=== PATIENT | female | born 1930 | race Caucasian/White ===

== ENCOUNTER 2017-02-01 11:22 | Observation (INO) | payer MEDICARE ==
--- OUTSIDE RECORDS SUMMARY | 2017-02-01 11:52 | XMS REPORT | Continuity of Care Document ---
:1930 Author Organization [facility] ([facility]) Address [address] [place] [address] Phone [phone] Care Team Providers Name Role Phone Rogelio Menchaca Primary Care Provider [phone] Source Comments This disclosure is being made pursuant to the Care Everywhere program, applicable federal and state laws, and may not contain all informaitonavailable regarding this patient.[facility] ([facility]) Active Allergies and Adverse Reactions Allergen Noted Date Severity Reactions Comments Acetaminophen Dizziness Cephalexin Headache Hydrocodone Dizziness Meperidine Nausea & Vomiting Morphine OTHER difficulty in waking up Penicillin G Urticaria (Hives) fainting Sulfadoxine Headache ringing in head Current Medications Prescription Sig. Disp. Refills Start Date End Date Status acetaminophen (TYLENOL take 500 mg by mouth Active EXTRA STRENGTH) 500 mg every 6 hours as tablet needed for Pain. acetaminophen-codeine take 1 Tab by mouth Active 300-30 mg per tablet every 4 hours as needed for Pain. Amitriptyline-Chlordia take 2 Tabs by mouth Active zepoxide 25-10 mg at bedtime. citalopram 40 mg take 40 mg by mouth 2 Active tablet times daily. clindamycin 150 mg take 600 mg by mouth Active capsule once. clonazePAM 1 mg tablet take 1 mg by mouth at Active bedtime. clonidine 0.3 mg take 0.3 mg by mouth Active tablet 2 times daily. diltiazem 240 mg ER take 240 mg by mouth Active capsule daily. docusate 100 mg take 100 mg by mouth Active capsule 2 times daily. ferrous sulfate 325 mg take 325 mg by mouth Active (65 mg Iron) tablet daily. furosemide 40 mg take 20 mg by mouth Active tablet daily. hydrALAZINE 25 mg take 25 mg by mouth 2 Active tablet times daily. levothyroxine 150 mcg take 150 mcg by mouth Active tablet daily. polyethylene glycol take 17 g by mouth at Active 3350 (MIRALAX) 17 gram bedtime as needed. (100 %) packet potassium chloride 10 take 20 mEq by mouth Active mEq tablet daily. propranolol 160 mg cap take 160 mg by mouth Active daily. triamcinolone 0.1 % 1 application by Active paste Dental route 3 times daily. warfarin 1 mg tablet take 1 mg by mouth Active daily. Take 1 mg Sun, tue and thurs. And 1.5 mg rest of the week zolpiDEM (AMBIEN) 10 take 10 mg by mouth Active mg tablet at bedtime as needed for Sleep. cyanocobalamin take 1,000 mcg by Active (VITAMIN B-12) 1,000 mouth daily. mcg tablet ASCORBIC ACID (VITAMIN take by mouth daily. Active C PO) pravastatin take 1 Tab by mouth 90 Tab 11 03/30/2009 Active (PRAVACHOL) 20 mg daily. Indications: tablet Mixed Hyperlipidemia valsartan (DIOVAN) 160 take 1 Tab by mouth 90 Tab 11 04/07/2009 Active mg tablet daily. Indications: Hypertension warfarin (COUMADIN) 1 take 1 mg by mouth Active mg tablet daily. 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 Coronary artery disease 01/29/2009 Overview: Nonobstructive, Bone Tender Dr Hurley in [place] HTN 01/29/2009 Hypothyroidism 01/29/2009 Migraine 01/29/2009 Overview: Dr Candelaria in [place] Osteopenia 01/29/2009 Pulmonary embolism 01/29/2009 Venous stasis 01/29/2009 S/P TKR (total knee replacement) 01/29/2009 Sciatica 01/29/2009 H/O: CVA 01/29/2009 Hyperlipemia 01/29/2009 Overview: Intolerant to increased dose of pravastatin or other statin due to headaches Hoarseness 01/29/2009 Depression 01/29/2009 Malignant melanoma 01/29/2009 Overview: Of eye s/p resection S/P DM (total abdominal hysterectomy) 01/29/2009 Overview: Has ovaries Insomnia 01/29/2009 Hyponatremia 01/29/2009 retirement (current) use of anticoagulants 01/17/2007 Osteoarthrosis, unspecified whether generalized or localized, unspecified 10/2005 site Esophageal reflux 08/23/2004 Overview: Hx of esophageal dilation, Dr Acharya in [place] Resolved Problems Problem Noted Date Resolved Date Hyposmolality and/or hyponatremia 08/24/2008 01/29/2009 Mixed hyperlipidemia 06/19/2007 01/29/2009 Other specified visual disturbances 02/27/2007 01/29/2009 Pain in joint, lower leg 02/27/2007 01/29/2009 Other and unspecified hyperlipidemia 01/17/2007 01/29/2009 Depressive disorder, not elsewhere classified 01/17/2007 01/29/2009 Other constipation 01/17/2007 01/29/2009 Persistent disorder of initiating or maintaining wakefulness 06/21/200601/29 Hypersomnia, unspecified 06/21/2006 01/29/2009 Other malaise and fatigue 06/21/2006 01/29/2009 Urge incontinence 06/21/2006 01/29/2009 Migraine, unspecified, without mention of intractable 05/29/2006 01/29/2009 migraine without mention of status migrainosus Other pulmonary embolism and infarction 05/28/2006 01/29/2009 Urinary tract infection, site not specified 05/17/2006 01/29/2009 Edema 05/17/2006 01/29/2009 Palpitations 05/17/2006 01/29/2009 Unspecified urinary incontinence 04/04/2006 01/29/2009 Atherosclerosis of renal artery 12/21/2005 01/29/2009 Dizziness and giddiness 12/21/2005 01/29/2009 Chest pain, unspecified 12/13/2005 01/29/2009 Abnormality of gait 05/24/2005 01/29/2009 Encounter for long-term (current) use of other medications 02/16/20052008 Muscle weakness (generalized) 02/16/2005 01/29/2009 Flushing 02/16/2005 01/29/2009 Diseases of tricuspid valve 09/29/2004 01/29/2009 Unspecified hypothyroidism 08/23/2004 01/29/2009 Unspecified essential hypertension 08/23/2004 01/29/2009 Other abnormal blood chemistry 03/13/2003 01/29/2009 Immunizations Name Dates Previously Given Next Due Influenza, unspecified 12/13/2005 Pneumococcal Polysaccharide, PPSV23 (Pneumovax 23) 09/07/2005 Social History Tobacco Use Types Packs/Day Years Used Date Never Smoker Alcohol Use Drinks/Week oz/Week Comments No Last Filed Vital Signs Vital Sign Reading Time Taken Blood Pressure 116/63 01/29/2009 2:22 PM CDT Pulse 61 01/29/2009 2:22 PM CDT Temperature 36.1 C (97 F) 01/29/2009 2:22 PM CDT Respiratory Rate 18 01/29/2009 2:22 PM CDT Height 1.638 m (5' 4.5") 01/29/2009 2:22 PM CDT Weight 96.8 kg (213 lb 6.5 oz) 01/29/2009 2:22 PM CDT Body Mass Index 36.08 01/29/2009 2:22 PM CDT Oxygen Saturation - - Plan of Care Health Maintenance Due Date Last Done Comments Hepatitis B Vaccine (1 of 3 - Primary 1930 Series) Tdap Vaccine 1943 Td Vaccine 1950 Zoster Vaccine 1992 Pneumococcal Vaccine (2 of 2 - PCV13) 09/07/2006 09/07/2005 Lipid Disorder Screening 12/13/2010 12/13/2005, 09/07/2005, 02/16/2005 Influenza Vaccine: Seasonal (#1) 04/03/2016 12/13/2005 Colonoscopy 01/29/2019 01/29/2009 (Previously completed) Osteoporosis Screening (DXA Bone Completed 12/12/2004 Density) Results from Last 3 Months Not on file
[2017-02-01] MEDS ORDERED: NORMAL SALINE 500 ML IV ONE (11:56)
--- NOTE | 2017-02-01 11:57 | ERNOTE ---
Medical Problem HPI - General Chief Complaint: General Assessment Time Seen by Provider: 02/01/17 11:45 Source: patient Exam Limitations: no limitations - Immun/Allergies/Home Medications Immunizations: IMMUNIZATION HX Immunizations Up to Date Yes History of Influenza Vaccine Yes Hx Pneumococcal Vaccination Yes Allergies/Adverse Reactions: Allergies cephalexin monohydrate [From Keflex] Allergy (Verified 02/01/17 11:47) meperidine HCl [From Demerol] Allergy (Verified 02/01/17 11:47) morphine Allergy (Verified 02/01/17 11:47) Penicillins Allergy (Verified 02/01/17 11:47) Sulfa (Sulfonamide Antibiotics) Allergy (Verified 02/01/17 11:47) prednisone Adverse Reaction (Intermediate, Verified 02/01/17 11:47) Other Home Medications: HOME MEDICATIONS Acetaminophen with Codeine [Tylenol with Codeine #3 Tablet] 1 each PO Q6H PRN [Last Taken Unknown] Aspirin [Aspirin Chewable] 81 mg PO DAILY 08/21/13 [Last Taken Unknown] Citalopram Hydrobromide [Celexa] 20 mg PO DAILY 08/21/13 [Last Taken Unknown] Docusate Sodium [Colace] 100 mg PO BID PRN 08/21/13 [Last Taken Unknown] Ferrous Sulfate 325 mg PO BID 08/21/13 [Last Taken Unknown] Furosemide [Lasix] 20 mg PO DAILY 08/21/13 [Last Taken Unknown] Levothyroxine Sodium [Synthroid] 0.2 mg PO DAILY 08/21/13 [Last Taken Unknown] Lorazepam [Ativan] 2 mg PO HS 08/21/13 [Last Taken Unknown] Pantoprazole Sodium [Protonix] 40 mg PO DAILY 08/21/13 [Last Taken Unknown] Potassium Chloride [Klor-Con 10] 10 meq PO DAILY 08/21/13 [Last Taken Unknown] Pravastatin Sodium [Pravachol] 20 mg PO HS 08/21/13 [Last Taken Unknown] Propranolol HCl [Propranolol HCl ER] 120 mg PO TID 08/21/13 [Last Taken Unknown] Valsartan [Diovan] 160 mg PO DAILY 08/21/13 [Last Taken Unknown] Amitriptyline HCl [Elavil] 50 mg PO HS 08/22/13 [Last Taken Unknown] Amitriptyline/Chlordiazepoxide [Chlordiazepox-Amitriptyl 10-25] 1 each PO HS [Last Taken Unknown] Cyanocobalamin [Vitamin B-12] 1,000 mcg IM Q28D 08/22/13 [Last Taken Unknown] Zolpidem Tartrate [Ambien Cr] 6.25 mg PO HS 08/22/13 [Last Taken Unknown] hydrALAZINE HCL [Apresoline] 50 mg PO TID 08/22/13 [Last Taken Unknown] Diphenoxylate HCl/Atrop Sulf [Lomotil] 2.5 mg PO TID PRN #30 tablet 02/01/17 [ Last Taken Unknown] Loperamide HCl [Imodium] 2 mg PO BID PRN #30 capsule 02/01/17 [Last Taken Unknown] - History of Present History Narrative: Here for weakness and diarrhea. she feels tired and has a headache and feels weak. Recent UTI two weeks ago. she has had diarrhea for the past two weeks and feels very weak Review of Systems - Review of Systems Constitutional: Present: weakness, fatigue, malaise EYE: Present: no symptoms reported ENT: Present: no symptoms reported Respiratory: Present: no symptoms reported Cardiology: Present: no symptoms reported Gastrointestinal/Abdominal: Present: See HPI, diarrhea, other - very poor appetite Musculoskeletal: Present: no symptoms reported Skin: Present: no symptoms reported Neurological: Present: no symptoms reported Endocrine: Present: no symptoms reported Hematologic/Lymphatic: Present: no symptoms reported Psych: Present: no symptoms reported - Patient's Past Medical History Patient History - Medical: UTI'S Patient History - Cardiac/Respiratory: CHF, TIA Patient History - Cancer: Melanoma Patient History - Surgical Procedures: Hysterectomy, Total Knee Replacement - Social History Living Situations: home Smoking Status: Never smoker - Immunizations Immunizations Up to Date: Yes Hx Pneumococcal Vaccination: Yes History of Influenza Vaccine: Yes Physical Exam - Physical Exam General Appearance: Present: alert, lethargic Ears, Nose, Throat: Present: normal ENT inspection, normal pharynx, dry mucous membranes Neck: Present: normal inspection, nontender Respiratory: Present: no respiratory distress, normal breath sounds, no accessory muscle use, chest nontender, lungs clear Cardiovascular/Chest: Present: regular rate, rhythm, no murmur, normal peripheral pulses Gastrointestinal/Abdominal: Present: normal bowel sounds, nontender, nondistended, soft, no organomegaly Back Exam: Present: normal inspection, normal range of motion Extremity Exam: Present: normal inspection, normal range of motion Neurological Exam: Present: alert, oriented, normal mood/affect, no motor/ sensory deficits Skin Exam: Present: pallor ED Progress - Results and Orders Patient's Lab Results:: I have reviewed the patient's lab results. - Vital Signs Patient's Vital Signs:: I have reviewed the patient's vital signs. Vital Signs: Vital Signs 02/01/17 11:39 Temperature 36.7 C Pulse Rate 69 Respiratory 16 Rate Blood Pressure 119/52 O2 Sat by Pulse 95 Oximetry - Progress/Reassessment Chief Complaint: General Assessment Plan - Plan Plan: I called Dr. Fajardo and discussed the care of this patient with him. Pt is very lethargic and weak however Dr. Fajardo stated that this is patient' s normal state and that she is always in a wheelchair and not warranting admission to hospital. He suggested social sciences research scientist consult for placement to a detention facility where staff could work with patient on strengthening of patient however daughter Lucia, adamantly refused. When orthostatics were done , patient tilted and Dr. Fajardo was consulted again and in light of this patient's orthostatic instability pt will now be admitted to observation on the med/surg floor in this hospital Departure - Departure Clinical Impression: Weakness, Orthostatic dizziness Diarrhea Qualifiers: Diarrhea type: unspecified type Qualified Code(s): R19.7 - Diarrhea, unspecified Clinical Impression: (Ruled Out): Diarrhea associated with pseudomembranous colitis Disposition: [facility] Condition: Serious Instructions: Diarrhea, Child Referrals: Rogelio Fajardo MD [Primary Care Provider] - Prescriptions: Diphenoxylate HCl/Atrop Sulf [Lomotil] 2.5 mg PO TID PRN #30 tablet PRN Reason: Abdominal Distention Loperamide HCl [Imodium] 2 mg PO BID PRN #30 capsule PRN Reason: Abdominal Distention
[2017-02-01 12:37] LABS: Hematocrit 36.9 % (37.0-47.0); Hemoglobin 12.4 gm/dL (12.5-16.0); Mean Cell Volume 92.9 fl (78-100); Mean Corpuscular Hemoglobin 31.2 pg (27-31); Mean Corpuscular Hgb Conc 33.6 g/dl (32-36); Mean Platelet Volume 9.1 fl (6.0-9.5); Neutrophil # 5.3 K/mm3 (1.3-6.0); Neutrophil % 55.1 % (42-75.0); Platelet Count 281 K/mm3 (150-450); Red Blood Count 3.97 M/mm3 (4.2-5.4); Red Cell Distribution Width 13.2 % (11.5-14.0); White Blood Count 9.5 K/mm3 (4.0-10.5)
[2017-02-01 12:39] LABS: Urine Bilirubin Negative (NEGATIVE); Urine Blood Negative /ul (NEGATIVE); Urine Ketone Negative (NEGATIVE); Urine Nitrite Negative (NEGATIVE); Urine Protein Negative (NEGATIVE); Urine Specific Gravity <=1.005 SP.GR. (1.005-1.010); Urine Urobilinogen Normal (NORMAL); Urine pH 6.5 pH (5.0-7.0)
[2017-02-01 12:47] LABS: Urine Appearance Clear; Urine Bacteria None Seen; Urine Color Yellow; Urine RBC None Seen /hpf (0-5); Urine WBC None Seen /hpf (0-5)
[2017-02-01 12:54] LABS: Albumin * 3.1 gm/dl (3.4-5.0); Anion Gap 7.9 mmol/L (6.8-13.8); BUN/Creatinine Ratio 9.4 (9.0-21.6); Bilirubin, Total 0.8 mg/dL (0.0-1.1); Ca. Corrected For Albumin 9.2 mg/dL (8.4-10.2); Calcium * 8.8 mg/dL (7.9-10.9); Carbon Dioxide 32.1 mmol/L (24-32.6); Total Protein 6.8 gm/dL (6.2-8.2)
[2017-02-01] MEDS ORDERED: POTASSIUM CHLORIDE 20 MEQ TABLET.SA PO ONE (13:09)
[2017-02-01] MEDS ORDERED: POTASSIUM CHLORIDE 20 MEQ TABLET.SA ONE (13:12)
[2017-02-01 13:38] LABS: T4 Free * 2.29 ng/dL (0.76-1.46); TSH * 0.599 uIU/mL (0.358-3.74)
--- OUTSIDE RECORDS SUMMARY | 2017-02-01 14:03 | XMS REPORT | Continuity of Care Document ---
:1930 Author Organization [facility] ([facility]) Address [address] [place] [address] Phone [phone] Care Team Providers Name Role Phone Rogelio Menchaca Primary Care Provider [phone] Source Comments This disclosure is being made pursuant to the Care Everywhere program, applicable federal and state laws, and may not contain all informaitonavailable regarding this patient.[facility] ([facility]) Active Allergies and Adverse Reactions Allergen Noted [...] tablet daily. 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 Hurley in [place] HTN 01/29/2009 Hypothyroidism 01/29/2009 Migraine 01/29/2009 Overview: Dr Candelaria in [place] Osteopenia 01/29/2009 Pulmonary embolism 01/29/2009 Venous stasis 01/29/2009 S/P TKR (total knee replacement) 01/29/2009 Sciatica 01/29/2009 H/O: CVA 01/29/2009 Hyperlipemia 01/29/2009 Overview: Intolerant to increased dose of pravastatin or other statin due to headaches Hoarseness 01/29/2009 Depression 01/29/2009 Malignant melanoma 01/29/2009 Overview: Of eye s/p resection S/P DM (total abdominal hysterectomy) 01/29/2009 Overview: Has ovaries Insomnia 01/29/2009 Hyponatremia 01/29/2009 jail (current) use of anticoagulants 01/17/2007 Osteoarthrosis, unspecified whether generalized or localized, unspecified 10/2005 site Esophageal reflux 08/23/2004 Overview: Hx of esophageal dilation, Dr Acharya in [place] Resolved Problems Problem Noted Date Resolved Date [...]
[2017-02-01] MEDS ORDERED: ACETAMINOPHEN WITH CODEINE 1 EACH TABLET PO PRN (16:35)
[2017-02-01] MEDS ORDERED: ACETAMINOPHEN 500 MG TABLET PO PRN ×2 (16:36→21:06)
[2017-02-01] MEDS ORDERED: CYANOCOBALAMIN 1,000 MCG/ML VIAL IM SCH (16:45)
[2017-02-01] MEDS ORDERED: hydrALAZINE HCL 50 MG TABLET PO SCH (17:00)
[2017-02-01] MEDS ORDERED: PROPRANOLOL HCL 60 MG CAPSULE.SA PO SCH ×3 (17:00→23:30)
--- NOTE | 2017-02-01 19:15 | HP ---
Chief Complaint - Chief Complaint Date of Service: 02/01/17 Time of Service: 09:25 Chief Complaint: Dizzy History of Present Illness: Two weeks ago finished a two week course of IV antibiotics, Ertapenem, for a UTI. The UTI caused severe mentation problems. The UTI has improved. She is still quite weak, however. She has chronic vertigo. She is chronically mostly in her wheechair. She stays at home with her daughter, but can stand and walk a little. She came to the ER today because she is more weak and tilting over in the wheelchair which is unusual for her. The ER doctor told me she has had diarrhea for two weeks. The nurse said for two days. She has had diarrhea for two days. None since admission to the medical surgical floor. I have stopped her stool softener. She has chronic migraine. In the ER she dropped her systolic BP on standing from 176 systolic to 100 sysolic. We admitted her to an observation bed for fear of her falling and to see if we can correct her orthostatic drop somewhat. - Patient's Past Medical History Patient History - Medical: Anxiety, Arthritis, Headache, Hypothyroidism, Migraines, UTI'S, Other - Vertigo, hallucinations, wheelchair Patient History - Cardiac/Respiratory: CHF, Hypertension, TIA Patient History - Cancer: Melanoma Patient History - Surgical Procedures: Cancer Surgery, Hysterectomy, Total Knee Replacement Patient History - Other: None - Family History Mother Family History - Medical: History Unknown Family History - Cardiac/Respiratory: History Unknown, Atrial Fibrillation Family History - Cancer: History Unknown Father Family History - Medical: - Social History Living Situations: other Psych History: Hx of Anxiety Smoking Status: Never smoker Have you smoked in the past 12 months: No Alcohol Use: none Drug Use: none - Immunizations Immunizations Up to Date: Yes Hx Pneumococcal Vaccination: Yes History of Influenza Vaccine: Yes Review Of Systems (GEN) - Review of Systems Generalized/Overall Review: Present: Weakness, Malaise EENTM: Present: Blurred Vision, Other - hallucinations Respiratory: Present: No Symptoms Reported Cardiac: Present: Edema Abdominal: Present: Diarrhea, Other - GERD Genitourinary: Present: Dribbling, Incontinent Musculoskeletal: Present: Joint Pain, Back Pain, Neck Pain Neurological: Present: Headache, Anxiety, Numbness, Parasthesia, Weakness Skin: Present: Bruising Misc: All systems neg except as marked Immunizations: IMMUNIZATION HX Immunizations Up to Date Yes History of Influenza Vaccine Yes Hx Pneumococcal Vaccination Yes Allergies/Adverse Reactions: Allergies Allergy/AdvReac Type Severity Reaction Status Date / Time cephalexin monohydrate Allergy Verified 02/01/17 15:58 [From Keflex] meperidine HCl [From Demerol] Allergy Verified 02/01/17 15:58 morphine Allergy Verified 02/01/17 15:58 Penicillins Allergy Verified 02/01/17 15:58 Sulfa (Sulfonamide Allergy Verified 02/01/17 15:58 Antibiotics) prednisone AdvReac Intermediate Other Verified 02/01/17 15:58 Home Medications: HOME MEDICATIONS Acetaminophen with Codeine [Tylenol with Codeine #3 Tablet] 1 each PO Q6H PRN [Last Taken Unknown] Aspirin [Aspirin Chewable] 81 mg PO DAILY 08/21/13 [Last Taken Unknown] Citalopram Hydrobromide [Celexa] 20 mg PO DAILY 08/21/13 [Last Taken Unknown] Docusate Sodium [Colace] 100 mg PO BID PRN 08/21/13 [Last Taken Unknown] Furosemide [Lasix] 20 mg PO DAILY 08/21/13 [Last Taken Unknown] Levothyroxine Sodium [Synthroid] 150 mcg PO DAILY 08/21/13 [Last Taken Unknown] Lorazepam [Ativan] 2 mg PO HS 08/21/13 [Last Taken Unknown] Pantoprazole Sodium [Protonix] 40 mg PO BID 08/21/13 [Last Taken Unknown] Potassium Chloride [Klor-Con 10] 20 meq PO DAILY 08/21/13 [Last Taken Unknown] Propranolol HCl [Propranolol HCl ER] 120 mg PO TID 08/21/13 [Last Taken Unknown] Amitriptyline/Chlordiazepoxide [Chlordiazepox-Amitriptyl 10-25] 1 each PO HS [Last Taken Unknown] Cyanocobalamin [Vitamin B-12] 1,000 mcg IM Q28D 08/22/13 [Last Taken Unknown] hydrALAZINE HCL [Apresoline] 50 mg PO TID 08/22/13 [Last Taken Unknown] Clopidogrel Bisulfate [Plavix] 75 mg PO DAILY 02/01/17 [Last Taken Unknown] Polyethylene Glycol 3350 [Miralax] 17 gm PO PRN PRN 02/01/17 [Last Taken Unknown ] Exam - Exam Vital Signs: Vital Signs - Last Taken Temp 36.7 C 02/01/17 18:46 Pulse 63 02/01/17 18:46 Resp 16 02/01/17 18:46 BP 162/55 02/01/17 18:46 Pulse Ox 95 02/01/17 18:46 Constitutional: Present: Alert, Oriented x3, No distress, Lethargic, Elderly, Obese ENT Exam: Present: normal ENT inspection, hard of hearing Eye Exam: bilateral eye: normal inspection, PERRL, EOMI Neck: Present: other - kyphosis Back Exam: Present: vertebral tenderness, other - kyphosis Respiratory: Present: normal breath sounds, no respiratory distress Cardiovascular/Chest: Present: regular rate, rhythm, no murmur Abdomen: Present: Normal bowel sounds, soft, nontender, nondistended, no rebound tenderness, no hepatospenomegaly, no masses, obese Extremity: Present: pedal edema Skin Exam: Present: no cyanosis, cool/dry Neurologic: Present: alert, oriented x 3, motor weakness Appearance: Present: appropriate appearance, neat Eye contact: Present: cooperative, good eye contact Thoughts: Present: normal thought pattern Diagnostic Studies: Laboratory Results WBC 9.5 K/mm3 (4.0-10.5) 02/01/17 12:20 RBC 3.97 M/mm3 (4.2-5.4) L 02/01/17 12:20 Hgb 12.4 gm/dL (12.5-16.0) L 02/01/17 12:20 Hct 36.9 % (37.0-47.0) L 02/01/17 12:20 MCV 92.9 fl (78-100) 02/01/17 12:20 MCH 31.2 pg (27-31) H 02/01/17 12:20 MCHC 33.6 g/dl (32-36) 02/01/17 12:20 RDW 13.2 % (11.5-14.0) 02/01/17 12:20 Plt Count 281 K/mm3 (150-450) 02/01/17 12:20 MPV 9.1 fl (6.0-9.5) 02/01/17 12:20 Immature Gran % (Auto) 0.40 % (0.001-0.429) 02/01/17 12:20 Immature Gran # (Auto) 0.04 K/mm3 (0.000-0.0310) H 02/01/17 12:20 Neutrophils % 55.1 % (42-75.0) 02/01/17 12:20 Lymphocytes % 29.6 % (20-51) 02/01/17 12:20 Monocytes % 10.3 % (0.0-9) H 02/01/17 12:20 Eosinophils % 3.7 % (0.0-3.0) H 02/01/17 12:20 Basophils % 0.9 % (0.0-1.0) 02/01/17 12:20 Nucleated RBC % 0.0 k/mm3 (0-1) 02/01/17 12:20 Neutrophils # 5.3 K/mm3 (1.3-6.0) 02/01/17 12:20 Lymphocytes # 2.8 k/mm3 (1.5-3.5) 02/01/17 12:20 Monocytes # 1.0 k/mm3 (0.0-1.0) 02/01/17 12:20 Eosinophils # 0.4 k/mm3 (0.0-0.7) 02/01/17 12:20 Absolute Basophils 0.1 k/mm3 (0.0-0.1) 02/01/17 12:20 Sodium 134 mmol/L (132-142) 02/01/17 12:20 Plasma Sodium 134 mmol/L (130-142) 02/01/17 12:20 Potassium 3.0 mmol/L (3.4-4.6) L D 02/01/17 12:20 Chloride 97 mmol/L (97-106) 02/01/17 12:20 Carbon Dioxide 32.1 mmol/L (24-32.6) 02/01/17 12:20 Anion Gap 7.9 mmol/L (6.8-13.8) 02/01/17 12:20 BUN 8 mg/dL (3-23) 02/01/17 12:20 Creatinine 0.85 mg/dL (0.4-1.4) 02/01/17 12:20 Est GFR (Non-Af Amer) 68 mL/min (60-130) 02/01/17 12:20 BUN/Creatinine Ratio 9.4 (9.0-21.6) 02/01/17 12:20 Random Glucose 104 mg/dL (70-110) 02/01/17 12:20 Lactic Acid, Venous 1.3 mmol/L (0.4-1.9) 02/01/17 12:20 Calcium 8.8 mg/dL (7.9-10.9) 02/01/17 12:20 Calcium Adj for Albumin 9.2 mg/dL (8.4-10.2) 02/01/17 12:20 Total Bilirubin 0.8 mg/dL (0.0-1.1) 02/01/17 12:20 AST 22 U/L (0-48) 02/01/17 12:20 ALT 18 U/L (19-67) L 02/01/17 12:20 Alkaline Phosphatase 82 U/L (50-170) 02/01/17 12:20 B-Natriuretic Peptide 995 pg/mL (5-550) H 02/01/17 12:15 Total Protein 6.8 gm/dL (6.2-8.2) 02/01/17 12:20 Albumin 3.1 gm/dl (3.4-5.0) L 02/01/17 12:20 Procalcitonin Less than 0.05 ng/mL (0.05-0.50) L 02/01/17 12:20 TSH 0.599 uIU/mL (0.358-3.74) 02/01/17 12:15 Free T4 2.29 ng/dL (0.76-1.46) H 02/01/17 12:15 Urine Color Yellow 02/01/17 12:08 Urine Appearance Clear 02/01/17 12:08 Urine pH 6.5 pH (5.0-7.0) 02/01/17 12:08 Ur Specific Napoleon <=1.005 SP.GR. (1.005-1.010) 02/01/17 12:08 Urine Protein Negative mg/dL (NEGATIVE) 02/01/17 12:08 Urine Glucose (UA) Negative mg/dL (NEGATIVE) 02/01/17 12:08 Urine Ketones Negative mg/dL (NEGATIVE) 02/01/17 12:08 Urine Blood Negative /ul (NEGATIVE) 02/01/17 12:08 Urine Nitrate Negative (NEGATIVE) 02/01/17 12:08 Urine Bilirubin Negative mg/dl (NEGATIVE) 02/01/17 12:08 Urine Urobilinogen Normal EU/dl (NORMAL) 02/01/17 12:08 Ur Leukocyte Esterase Negative /ul (NEGATIVE) 02/01/17 12:08 Urine RBC None seen /hpf (0-5) 02/01/17 12:08 Urine WBC None seen /hpf (0-5) 02/01/17 12:08 Ur Epithelial Cells None seen /hpf (0-5) 02/01/17 12:08 Urine Bacteria None seen (NONE) 02/01/17 12:08 Urine Culture Comments No culture indicated 02/01/17 12:08 Assessment/Plan - Narrative Narrative: Herbie. Support hose. Follow labs. Watch vitals. Up with help. Consider rehab with PT. Reynaldo K. Adjust meds. - Assessment/Plan (1) Vertigo Problem: Chronic (2) Migraine Problem: Chronic Qualifiers: Migraine type: without aura Status migrainosus presence: without status migrainosus Intractability: not intractable Qualified Code(s): G43.009 - Migraine without aura, not intractable, without status migrainosus (3) Hypertension Problem: Chronic Qualifiers: Hypertension type: essential hypertension Qualified Code(s): I10 - Essential (primary) hypertension (4) Hypokalemia Problem: Acute (5) Atilio Bonnet syndrome Problem: Chronic (6) Spinal stenosis of lumbar region Problem: Chronic (7) Anxiety Problem: Acute (8) Diarrhea Problem: Acute Qualifiers: Diarrhea type: unspecified type Qualified Code(s): R19.7 - Diarrhea, unspecified (9) Orthostatic dizziness Problem: Acute (10) Weakness Problem: Chronic (11) Congestive heart failure Problem: Chronic (12) Muscle weakness Problem: Chronic (13) CVA (cerebral vascular accident) Problem: Resolved (14) Peripheral neuropathy Problem: Chronic
[2017-02-01] MEDS ORDERED: FERROUS SULFATE 325 MG TABLET PO SCH (21:00)
[2017-02-01] MEDS ORDERED: AMITRIPTYLINE HCL 50 MG TABLET PO SCH (21:00)
[2017-02-01] MEDS ORDERED: chlordiazePOXIDE HCL 10 MG CAPSULE PO SCH (21:00)
[2017-02-01] MEDS ORDERED: FLUDROCORTISONE ACETATE 0.1 MG TABLET PO SCH (21:00)
[2017-02-01] MEDS ORDERED: [UNRECOGNIZED DRUG - OTHER] PO SCH (21:00)
[2017-02-01] MEDS ORDERED: AMITRIPTYLINE HCL 25 MG TABLET PO SCH ×2 (21:00→22:00)
[2017-02-01] MEDS ORDERED: CHLORDIAZEPOXIDE PO SCH (21:00)
[2017-02-01] MEDS ORDERED: AMITRIPTYLINE PO SCH (21:00)
[2017-02-01] MEDS ORDERED: SIMVASTATIN 10 MG TABLET PO SCH (21:00)
[2017-02-01] MEDS ORDERED: Zolpidem Tartrate [Ambien Cr] 6.25 MG PO SCH (21:00)
[2017-02-01] MEDS ORDERED: LORazepam 1 MG TABLET PO SCH (21:00)
[2017-02-01] MEDS ORDERED: PROPRANOLOL HCL 80 MG TABLET PO SCH (21:15)
[2017-02-01] MEDS ORDERED: MECLIZINE HCL 25 MG TABLET PO PRN (21:20)
[2017-02-01] MEDS: LORazepam 1 MG TABLET PO SCH (22:41)
[2017-02-01] MEDS ORDERED: ZOLPIDEM TARTRATE 10 MG TABLET PO SCH (22:46)
[2017-02-01] MEDS ORDERED: FAMOTIDINE 20 MG TABLET PO SCH (22:46)
[2017-02-01] MEDS: hydrALAZINE HCL 50 MG TABLET PO SCH (23:13)
[2017-02-01] MEDS: PROPRANOLOL HCL 80 MG TABLET PO SCH (23:22)
[2017-02-02] MEDS: hydrALAZINE HCL 50 MG TABLET PO SCH ×2 (03:32→09:43)
[2017-02-02] MEDS: LORazepam 1 MG TABLET PO SCH ×2 (03:33→09:46)
[2017-02-02] MEDS: PROPRANOLOL HCL 80 MG TABLET PO SCH ×2 (03:33→09:43)
[2017-02-02 05:46] LABS: Hematocrit 33.6 % (37.0-47.0); Hemoglobin 11.1 gm/dL (12.5-16.0); Mean Cell Volume 95.2 fl (78-100); Mean Corpuscular Hemoglobin 31.4 pg (27-31); Mean Platelet Volume 9.4 fl (6.0-9.5); Neutrophil # 4.4 K/mm3 (1.3-6.0); Neutrophil % 53.2 % (42-75.0); Platelet Count 233 K/mm3 (150-450); Red Blood Count 3.53 M/mm3 (4.2-5.4); Red Cell Distribution Width 13.2 % (11.5-14.0); White Blood Count 8.2 K/mm3 (4.0-10.5)
[2017-02-02 06:11] LABS: Albumin * 2.8 gm/dl (3.4-5.0); Anion Gap 9.5 mmol/L (6.8-13.8); Bilirubin, Total 0.6 mg/dL (0.0-1.1); Ca. Corrected For Albumin 9.3 mg/dL (8.4-10.2); Calcium * 8.7 mg/dL (7.9-10.9); Carbon Dioxide 31.5 mmol/L (24-32.6); Total Protein 5.9 gm/dL (6.2-8.2)
[2017-02-02] MEDS ORDERED: ACETAMINOPHEN 325 MG TABLET PO PRN (06:27)
[2017-02-02] MEDS ORDERED: LEVOTHYROXINE SODIUM 100 MCG TABLET ONE (06:38)
[2017-02-02] MEDS ORDERED: LEVOTHYROXINE SODIUM 25 MCG TABLET ONE (06:38)
[2017-02-02] MEDS ORDERED: PANTOPRAZOLE SODIUM 40 MG TABLET.EC PO SCH (07:00)
[2017-02-02] MEDS ORDERED: LEVOTHYROXINE SODIUM 100 MCG TABLET PO SCH (07:00)
[2017-02-02] MEDS ORDERED: LEVOTHYROXINE SODIUM 125 MCG TABLET PO SCH (07:00)
[2017-02-02] MEDS ORDERED: LEVOTHYROXINE SODIUM 175 MCG TABLET PO SCH (07:00)
[2017-02-02] MEDS ORDERED: POTASSIUM CHLORIDE 10 MEQ TABLET.SA PO SCH ×2 (09:00)
[2017-02-02] MEDS ORDERED: CLOPIDOGREL BISULFATE 75 MG TABLET PO SCH (09:00)
[2017-02-02] MEDS ORDERED: CITALOPRAM HYDROBROMIDE 20 MG TABLET PO SCH (09:00)
[2017-02-02] MEDS ORDERED: ASPIRIN 81 MG TAB.CHEW PO SCH (09:00)
[2017-02-02] MEDS ORDERED: LOSARTAN POTASSIUM 50 MG TABLET PO SCH (09:00)
[2017-02-02] MEDS ORDERED: SACCHAROMYCES BOULARDII 250 MG CAPSULE PO SCH (09:00)
[2017-02-02] MEDS ORDERED: FUROSEMIDE 20 MG TABLET PO SCH ×2 (09:00)
--- NOTE | 2017-02-02 09:46 | DS ---
(1) Vertigo Problem: Chronic (2) Migraine Problem: Chronic Qualifiers: Migraine type: without aura Status migrainosus presence: without status migrainosus Intractability: not intractable Qualified Code(s): G43.009 - Migraine without aura, not intractable, without status migrainosus (3) Hypertension Problem: Chronic Qualifiers: Hypertension type: essential hypertension Qualified Code(s): I10 - Essential (primary) hypertension (4) Hypokalemia Problem: Acute (5) Atilio Bonnet syndrome Problem: Chronic (6) Spinal stenosis of lumbar region Problem: Chronic (7) Anxiety Problem: Acute (8) Diarrhea Problem: Acute Qualifiers: Diarrhea type: unspecified type Qualified Code(s): R19.7 - Diarrhea, unspecified (9) Orthostatic dizziness Problem: Acute (10) Weakness Problem: Chronic (11) Congestive heart failure Problem: Chronic (12) Muscle weakness Problem: Chronic (13) CVA (cerebral vascular accident) Problem: Resolved (14) Peripheral neuropathy Problem: Chronic (15) Normochromic normocytic anemia Problem: Chronic (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 NO diarrhea in hospital. Orthostatics improved in hospital. Had one fluid bolus in hospital. Up with nursing staff with little trouble in hospital. Improved with increase in Amitriptyline at night, increase of Ativan during the day, and restart of Ambien at night. We have tried many hypnagogueic agents over the years, and NOTHING works but ambien. Her insurance company has stood in the way of this lately. Part of the reason for this hospitalization has been their refusal to pay for this medication. Her daily headache for two weeks is now also gone. Her tremor and all over body numbness is now also gone. She agrees to home PT OT> Procedures Performed: none Discharge Disposition: Home self care Disposition: Home self-care Condition: Serious Discharge Activity: Activity as tolerated Discharge Diet: General/regular food Snf Therapy: Physicial Therapy, Occupation Therapy - at home Referrals: Rogelio Fajardo MD [Primary Care Provider] - Problem Oriented Discharge Instructions to Patient/Family: Migraine Headache, [id number], Hyperventilation, Generalized Anxiety Disorder, Weakness, Fall Prevention in the Home, [id number] Additional Patient Instructions (free text): CBC CMP in [address] Menchaca 1 week Prescriptions (Any new or edited meds): Amitriptyline HCl [Elavil] 50 mg PO HS #30 tablet LORazepam [Ativan] 2 mg PO QID #120 tablet Levothyroxine Sodium [Synthroid] 125 mcg PO DAILY@0700 #30 tablet Pravastatin Sodium [Pravachol] 20 mg PO HS #30 tablet Propranolol HCl [Inderal] 120 mg PO QID #120 tablet Zolpidem Tartrate [Ambien] 1 tab PO HS #30 tablet hydrALAZINE HCL [Apresoline] 50 mg PO Q6H #120 tablet Complete Home Medications List: Complete Home Medication List: Aspirin [Aspirin Chewable] 81 mg PO DAILY 08/21/13 Citalopram Hydrobromide [Celexa] 20 mg PO DAILY 08/21/13 Pantoprazole Sodium [Protonix] 40 mg PO BID 08/21/13 Amitriptyline/Chlordiazepoxide [Chlordiazepox-Amitriptyl 10-25] 1 each PO HS Cyanocobalamin [Vitamin B-12] 1,000 mcg IM Q28D 08/22/13 Clopidogrel Bisulfate [Plavix] 75 mg PO DAILY 02/01/17 Acetaminophen [Tylenol] 650 mg PO Q6H PRN #0 tablet 02/02/17 Amitriptyline HCl [Elavil] 50 mg PO HS #30 tablet 02/02/17 LORazepam [Ativan] 2 mg PO QID #120 tablet 02/02/17 Levothyroxine Sodium [Synthroid] 125 mcg PO DAILY@0700 #30 tablet 02/02/17 Pravastatin Sodium [Pravachol] 20 mg PO HS #30 tablet 02/02/17 Propranolol HCl [Inderal] 120 mg PO QID #120 tablet 02/02/17 Zolpidem Tartrate [Ambien] 1 tab PO HS #30 tablet 02/02/17 hydrALAZINE HCL [Apresoline] 50 mg PO Q6H #120 tablet 02/02/17
[2017-02-02 10:55] VITALS: BP 155/69
[2017-02-02] MEDS ORDERED: ZOLPIDEM TARTRATE 10 MG TABLET PO SCH (21:00)
[2017-02-02] MEDS ORDERED: FAMOTIDINE 20 MG TABLET PO SCH (21:00)
[2017-02-02] MEDS ORDERED: AMITRIPTYLINE HCL 50 MG TABLET PO SCH (21:00)
== END 2017-02-02 13:12 | disposition home health service (06) ==
LOC: ER 11:22 → MS 13:57
PROVIDERS: ADMIT Allergy & Immunology; ATTEND Allergy & Immunology
DX: I95.1 Orthostatic hypotension (principal); R42 Dizziness and giddiness; G43.909 Migraine, unspecified, not intractable, without status migrainosus; I10 Essential (primary) hypertension; E87.6 Hypokalemia; M48.06 Spinal stenosis, lumbar region; R19.7 Diarrhea, unspecified; R53.1 Weakness; I50.9 Heart failure, unspecified; G62.9 Polyneuropathy, unspecified; F41.9 Anxiety disorder, unspecified; D64.9 Anemia, unspecified; R06.4 Hyperventilation; R44.1 Visual hallucinations
CPT/HCPCS: 36415; 71020; 80053; 81001; 83605; 83880; 84145; 84439; 84443; 85025; 87040; G0378

== ENCOUNTER 2017-03-14 10:04 | Emergency (ER) | payer MEDICARE ==
[2017-03-14] MEDS ORDERED: LABETALOL HCL 5 MG/ML VIAL IV ONE ×2 (10:15→10:31)
--- NOTE | 2017-03-14 10:28 | ERNOTE ---
Neuro HPI ER Record Time Seen by Provider: 03/14/17 10:05 Source: patient, family Exam Limitations: no limitations Immunizations: IMMUNIZATION HX Immunizations Up to Date Yes History of Influenza Vaccine Yes Hx Pneumococcal Vaccination Yes Allergies/Adverse Reactions: Allergies Allergy/AdvReac Type Severity Reaction Status Date / Time cephalexin monohydrate Allergy Verified 02/01/17 15:58 [From Keflex] meperidine HCl [From Demerol] Allergy Verified 02/01/17 15:58 morphine Allergy Verified 02/01/17 15:58 Penicillins Allergy Verified 02/01/17 15:58 Sulfa (Sulfonamide Allergy Verified 02/01/17 15:58 Antibiotics) prednisone AdvReac Intermediate Other Verified 02/01/17 15:58 Home Medications: HOME MEDICATIONS Aspirin [Aspirin Chewable] 81 mg PO DAILY 08/21/13 [Last Taken Unknown] Citalopram Hydrobromide [Celexa] 20 mg PO DAILY 08/21/13 [Last Taken Unknown] Pantoprazole Sodium [Protonix] 40 mg PO BID 08/21/13 [Last Taken Unknown] Amitriptyline/Chlordiazepoxide [Chlordiazepox-Amitriptyl 10-25] 1 each PO HS [Last Taken Unknown] Cyanocobalamin [Vitamin B-12] 1,000 mcg IM Q28D 08/22/13 [Last Taken Unknown] Clopidogrel Bisulfate [Plavix] 75 mg PO DAILY 02/01/17 [Last Taken Unknown] Acetaminophen [Tylenol] 650 mg PO Q6H PRN #0 tablet 02/02/17 [Last Taken Unknown ] Amitriptyline HCl [Elavil] 50 mg PO HS #30 tablet 02/02/17 [Last Taken Unknown] LORazepam [Ativan] 2 mg PO QID #120 tablet 02/02/17 [Last Taken Unknown] Levothyroxine Sodium [Synthroid] 125 mcg PO DAILY@0700 #30 tablet 02/02/17 [ Last Taken Unknown] Pravastatin Sodium [Pravachol] 20 mg PO HS #30 tablet 02/02/17 [Last Taken Unknown] Propranolol HCl [Inderal] 120 mg PO QID #120 tablet 02/02/17 [Last Taken Unknown ] Zolpidem Tartrate [Ambien] 1 tab PO HS #30 tablet 02/02/17 [Last Taken Unknown] hydrALAZINE HCL [Apresoline] 50 mg PO Q6H #120 tablet 02/02/17 [Last Taken Unknown] - History of Present Illness Narrative: Patient had been up since 06:00 and seemed to be doing okay, went back to bed. Around 08:00 when she woke up again, she started to complain of a headache and seemed to be more confused. She has not had her morning medications yet, the family also noticed more confusion over the last few weeks. Patient also states 'my doctor knows that I have migraines, this feels like a migraine' Date (Duration): 03/14/17 Time (Timing): 08:00 Review of Systems - Review of Systems Constitutional: Absent: recent illness, fever, chills EYE: Absent: vision changes ENT: Absent: sore throat Respiratory: Absent: shortness of breath, cough Cardiology: Absent: chest pain Gastrointestinal/Abdominal: Absent: nausea, vomiting, abdominal pain Genitourinary: Present: no symptoms reported Musculoskeletal: Absent: neck pain Neurological: Present: headache - Patient's Past Medical History Patient History - Medical: Anxiety, Arthritis, Headache, Hypothyroidism, Migraines, UTI'S, Other - Vertigo, hallucinations, wheelchair Patient History - Cardiac/Respiratory: CHF, Hypertension, TIA Patient History - Cancer: Melanoma Patient History - Surgical Procedures: Cancer Surgery, Hysterectomy, Total Knee Replacement Patient History - Other: None - Family History Mother Family History - Medical: History Unknown Family History - Cardiac/Respiratory: History Unknown, Atrial Fibrillation Family History - Cancer: History Unknown Father Family History - Medical: - Social History Living Situations: other Psych History: Hx of Anxiety Alcohol Use: none Drug Use: none - Immunizations Immunizations Up to Date: Yes Hx Pneumococcal Vaccination: Yes History of Influenza Vaccine: Yes Physical Exam - Physical Exam General Appearance: Present: wd/wn, alert, no apparent distress Head Exam: Present: normal inspection, no evidence of injury Eye Exam: Normal inspection: bilateral, PERRL: bilateral, EOMI: bilateral Ears, Nose, Throat: Present: normal ENT inspection, normal pharynx Neck: Present: normal inspection, nontender Respiratory: Present: no respiratory distress, lungs clear, decreased breath sounds Cardiovascular/Chest: Present: regular rate, rhythm, no murmur Gastrointestinal/Abdominal: Present: normal bowel sounds, nontender, nondistended, soft Back Exam: Present: normal inspection Extremity Exam: Present: no edema Neurological Exam: Present: alert, oriented, normal mood/affect, no motor/ sensory deficits Skin Exam: Present: normal color, warm/dry Marcos Coma Scale - Assess Eye Opening: Spontaneous Motor: Obeys Commands Verbal: Oriented - Total Coma Scale Total: 15 ED Progress - Results and Orders Patient's Lab Results:: I have reviewed the patient's lab results. - Vital Signs Patient's Vital Signs:: I have reviewed the patient's vital signs. - EKG EKG: NSR, no ST T wave changes, unchanged from - 05/22/2009, other - no acute changes EKG read: Interp. by me - CT/Ultrasound CT/Ultrasound Narrative: CT head: chronic, no acute changes - Progress/Reassessment Progress Note-Subjective: 03/14/17 10:[address] with radiologist 03/14/17 11:43 headache better, exam unchanged 03/14/17 13:16 headache better, blood pressure better, discussed results with patient and family, patient ready to go home Departure Clinical Impression: Hypertension Qualifiers: Hypertension type: essential hypertension Qualified Code(s): I10 - Essential ( primary) hypertension Migraine Qualifiers: Migraine type: unspecified Status migrainosus presence: without status migrainosus Intractability: not intractable Qualified Code(s): G43.909 - Migraine, unspecified, not intractable, without status migrainosus - Departure Disposition: Home self-care Condition: Good Instructions: Recurrent Migraine Headache, [id number] Additional Instructions: you were given your morning blood pressure medication in the ER, when you get home take the rest of your morning medications and your midday medication call your doctor for follow up Referrals: Rogelio Fajardo MD [Primary Care Provider] -
[2017-03-14 10:34] LABS: Hematocrit 36.3 % (37.0-47.0); Hemoglobin 12.2 gm/dL (12.5-16.0); Mean Cell Volume 92.1 fl (78-100); Mean Corpuscular Hgb Conc 33.6 g/dl (32-36); Mean Platelet Volume 8.9 fl (6.0-9.5); Neutrophil # 7.1 K/mm3 (1.3-6.0); Neutrophil % 64.1 % (42-75.0); Platelet Count 283 K/mm3 (150-450); Red Blood Count 3.94 M/mm3 (4.2-5.4); Red Cell Distribution Width 11.9 % (11.5-14.0)
[2017-03-14 10:43] LABS: Prothrombin Time (Patient) 10.8 Seconds (9.4-11.4)
[2017-03-14 10:44] LABS: INR 1.04 INR (0.90-1.10); Partial Thrombolplastin Time 29.2 Seconds (24-32)
[2017-03-14 10:47] LABS: Albumin * 3.2 gm/dl (3.4-5.0); Anion Gap 9.2 mmol/L (6.8-13.8); BUN/Creatinine Ratio 11.3 (9.0-21.6); Bilirubin, Total 0.6 mg/dL (0.0-1.1); Ca. Corrected For Albumin 8.9 mg/dL (8.4-10.2); Calcium * 8.6 mg/dL (7.9-10.9); Carbon Dioxide 30.7 mmol/L (24-32.6); Potassium 3.9 mmol/L (3.4-4.6); Total Protein 6.8 gm/dL (6.2-8.2)
[2017-03-14] MEDS ORDERED: ACETAMINOPHEN 325 MG TABLET PO ONE (11:43)
[2017-03-14] MEDS ORDERED: hydrALAZINE HCL 50 MG TABLET PO PRN (11:53)
[2017-03-14] MEDS ORDERED: PROPRANOLOL HCL 60 MG CAPSULE.SA PO PRN (11:54)
[2017-03-14 11:57] LABS: Urine Bilirubin Negative (NEGATIVE); Urine Blood Negative /ul (NEGATIVE); Urine Ketone Negative (NEGATIVE); Urine Nitrite Negative (NEGATIVE); Urine Protein Negative (NEGATIVE); Urine Specific Gravity 1.015 SP.GR. (1.005-1.010); Urine Urobilinogen Normal (NORMAL)
[2017-03-14] MEDS ORDERED: ACETAMINOPHEN 325 MG TABLET ONE (12:01)
[2017-03-14 12:14] LABS: Urine Appearance Clear; Urine Bacteria None Seen; Urine Color Yellow; Urine RBC None Seen /hpf (0-5); Urine WBC None Seen /hpf (0-5)
[2017-03-14 13:20] VITALS: BP 170/67
== END 2017-03-14 13:30 | disposition short-term general hospital (02) ==
LOC: ER 10:04
DX: G43.909 Migraine, unspecified, not intractable, without status migrainosus (principal); I10 Essential (primary) hypertension; R41.0 Disorientation, unspecified; Z79.899 Other long term (current) drug therapy

== ENCOUNTER 2017-03-14 19:49 | Observation (INO) | payer MEDICARE ==
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
[2017-03-14 20:59] LABS: Hematocrit 37.9 % (37.0-47.0); Hemoglobin 12.7 gm/dL (12.5-16.0); Mean Cell Volume 92.4 fl (78-100); Mean Corpuscular Hgb Conc 33.5 g/dl (32-36); Neutrophil % 61.7 % (42-75.0); Platelet Count 289 K/mm3 (150-450); White Blood Count 11.4 K/mm3 (4.0-10.5)
[2017-03-14 21:43] LABS: Acetaminophen * 0.3 mcg/mL (10.0-30.0); Salicylate Less than 2.8 mg/dL (2.8-20.0)
[2017-03-14] MEDS ORDERED: PROPRANOLOL HCL 60 MG CAPSULE.SA PO ONE ×2 (21:52→22:30)
[2017-03-14] MEDS ORDERED: hydrALAZINE HCL 25 MG TABLET ONE (21:52)
[2017-03-14] MEDS ORDERED: hydrALAZINE HCL 50 MG TABLET PO ONE (22:15)
[2017-03-15] MEDS ORDERED: hydrALAZINE HCL 25 MG TABLET ONE (01:52)
[2017-03-15] MEDS ORDERED: hydrALAZINE HCL 25 MG TABLET PO ONE (02:30)
[2017-03-15] MEDS ORDERED: ACETAMINOPHEN 500 MG TABLET PO ONE (05:46)
[2017-03-15] MEDS ORDERED: PROPRANOLOL HCL 60 MG CAPSULE.SA PO ONE (06:45)
[2017-03-15] MEDS ORDERED: hydrALAZINE HCL 50 MG TABLET PO ONE (06:45)
[2017-03-15] MEDS ORDERED: LORazepam 1 MG TABLET PO PRN (07:56)
[2017-03-15] MEDS ORDERED: ACETAMINOPHEN 325 MG TABLET PO PRN (07:56)
[2017-03-15] MEDS ORDERED: PROPRANOLOL HCL 80 MG TABLET PO SCH (09:00)
[2017-03-15] MEDS ORDERED: CITALOPRAM HYDROBROMIDE 20 MG TABLET PO SCH (09:00)
[2017-03-15] MEDS: ASPIRIN 81 MG TAB.CHEW PO SCH (10:11)
[2017-03-15] MEDS: CLOPIDOGREL BISULFATE 75 MG TABLET PO SCH (10:12)
[2017-03-15] MEDS: PANTOPRAZOLE SODIUM 40 MG TABLET.EC PO SCH ×2 (10:12→21:00)
[2017-03-15] MEDS: LACTOBACILLUS ACIDOPHILUS 100 CAP BTL PO SCH (10:12)
[2017-03-15] MEDS: hydrALAZINE HCL 50 MG TABLET PO SCH ×2 (12:14→17:36)
[2017-03-15] MEDS: PROPRANOLOL HCL 60 MG CAPSULE.SA PO SCH ×3 (12:15→19:01)
[2017-03-15] MEDS ORDERED: PROPRANOLOL HCL PO SCH ×2 (13:00)
[2017-03-15] MEDS: LORazepam 1 MG TABLET PO SCH (14:11)
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
[2017-03-15 19:37] LABS: Albumin * 3.4 gm/dl (3.4-5.0); Anion Gap 8.4 mmol/L (6.8-13.8); BUN/Creatinine Ratio 10.4 (9.0-21.6); Bilirubin, Total 0.5 mg/dL (0.0-1.1); Ca. Corrected For Albumin 9.4 mg/dL (8.4-10.2); Calcium * 9.2 mg/dL (7.9-10.9); Carbon Dioxide 29.9 mmol/L (24-32.6); Potassium 3.3 mmol/L (3.4-4.6); Total Protein 7.4 gm/dL (6.2-8.2)
[2017-03-15] MEDS ORDERED: CALCIUM CARBONATE 500 MG TAB.CHEW PO PRN (20:47)
[2017-03-15] MEDS ORDERED: SUCRALFATE 1 G/10 ML UDC PO PRN (20:48)
[2017-03-15] MEDS ORDERED: [UNRECOGNIZED DRUG - OTHER] PO SCH (21:00)
[2017-03-15] MEDS ORDERED: chlordiazePOXIDE HCL 10 MG CAPSULE PO SCH (21:00)
[2017-03-15] MEDS ORDERED: SIMVASTATIN 10 MG TABLET PO SCH (21:00)
[2017-03-15] MEDS ORDERED: MINOXIDIL 2.5 MG TABLET PO SCH (21:00)
[2017-03-15] MEDS ORDERED: CHLORDIAZEPOXIDE PO SCH (21:00)
[2017-03-15] MEDS ORDERED: AMITRIPTYLINE HCL 50 MG TABLET PO SCH (21:00)
[2017-03-15] MEDS ORDERED: ZOLPIDEM TARTRATE 10 MG TABLET PO SCH (21:00)
[2017-03-15] MEDS ORDERED: AMITRIPTYLINE PO SCH (21:00)
[2017-03-15] MEDS ORDERED: AMITRIPTYLINE HCL 25 MG TABLET PO SCH (21:00)
[2017-03-15] MEDS: hydrALAZINE HCL 25 MG TABLET PO SCH (21:02)
[2017-03-16] MEDS ORDERED: POTASSIUM CHLORIDE 20 MEQ TABLET.SA PO ONE ×2 (05:57→08:01)
[2017-03-16] MEDS ORDERED: LEVOTHYROXINE SODIUM 100 MCG TABLET PO SCH (07:00)
[2017-03-16] MEDS: LORazepam 1 MG TABLET PO SCH ×2 (07:53→14:13)
[2017-03-16] MEDS: PANTOPRAZOLE SODIUM 40 MG TABLET.EC PO SCH (08:45)
[2017-03-16] MEDS: LACTOBACILLUS ACIDOPHILUS 100 CAP BTL PO SCH (08:45)
[2017-03-16] MEDS: CLOPIDOGREL BISULFATE 75 MG TABLET PO SCH (08:45)
[2017-03-16] MEDS: ASPIRIN 81 MG TAB.CHEW PO SCH (08:45)
[2017-03-16] MEDS: PROPRANOLOL HCL 60 MG CAPSULE.SA PO SCH ×3 (08:48→17:27)
[2017-03-16] MEDS: hydrALAZINE HCL 25 MG TABLET PO SCH ×3 (08:49→17:27)
--- NOTE | 2017-03-16 13:50 | DS ---
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 (8) Migraine Problem: Chronic Qualifiers: Migraine type: unspecified Status migrainosus presence: without status migrainosus Intractability: not intractable Qualified Code(s): G43.909 - Migraine, unspecified, not intractable, without status migrainosus (9) Peripheral neuropathy Problem: Chronic Qualifiers: Peripheral neuropathy type: polyneuropathy, unspecified Qualified Code(s): G62.9 - Polyneuropathy, unspecified (10) 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 Description of Stay: Stable while in the hospital. BP normalized. Formal psych eval. revealed at the least moderate dementia. Will return home. May or may not need a different living venue than at home with home help. Procedures Performed: none Discharge Disposition: Home self care Disposition: Home self-care Condition: Fair Discharge Activity: Activity as tolerated Discharge Diet: General/regular food Consultation Done:: Dr. Enzo Moore, psychiatry. Problem Oriented Discharge Instructions to Patient/Family: Confusion, Dementia , Managing Your High Blood Pressure Additional Patient Instructions (free text): Resume [facility].Add nursing and a bath aide to patient's services. Please call report to [phone] and fax to [phone]. Followup with Dr. Menchaca, 1 week. IF IT IS NOT ON THE CURRENT DISCHARGE MED LIST, FOR THE PRESENT TIME, DO NOT TAKE IT. Prescriptions (Any new or edited meds): Acetaminophen [Tylenol] 650 mg PO QID PRN #1 tablet PRN Reason: Mild Pain Levothyroxine Sodium [Synthroid] 200 mcg PO DAILY@0700 #30 tablet Complete Home Medications List: Complete Home Medication List: Aspirin [Aspirin Chewable] 162 mg PO DAILY 08/21/13 Pantoprazole Sodium [Protonix] 40 mg PO BID 08/21/13 Amitriptyline/Chlordiazepoxide [Chlordiazepox-Amitriptyl 10-25] 1 each PO HS Cyanocobalamin [Vitamin B-12] 1,000 mcg IM Q14D 08/22/13 Clopidogrel Bisulfate [Plavix] 75 mg PO DAILY 02/01/17 Amitriptyline HCl [Elavil] 50 mg PO HS #30 tablet 02/02/17 Pravastatin Sodium [Pravachol] 20 mg PO HS #30 tablet 02/02/17 L. Acidophilus/Bifid. Animalis [Probiotic 5 Billion Cell Cap] 1 each PO DAILY Lorazepam [Ativan] 2 mg PO TID PRN 03/14/17 hydrALAZINE HCL [Apresoline] 50 mg PO QID 03/14/17 Propranolol HCl [Inderal LA] 120 mg PO TID 03/15/17 Ranitidine HCl [Zantac] 300 mg PO DAILY PRN 03/15/17 Acetaminophen [Tylenol] 650 mg PO QID PRN #1 tablet 03/16/17 Levothyroxine Sodium [Synthroid] 200 mcg PO DAILY@0700 #30 tablet 03/16/17
[2017-03-16 17:28] VITALS: BP 171/73
[2017-03-29] MEDS ORDERED: CYANOCOBALAMIN 1,000 MCG/ML VIAL IM SCH (08:00)
== END 2017-03-16 17:58 | disposition home health service (06) ==
LOC: ER 19:49 → MS 03-15 07:30
PROVIDERS: ADMIT Allergy & Immunology; ATTEND Allergy & Immunology
DX: F03.90 Unspecified dementia, unspecified severity, without behavioral disturbance, psychotic disturbance, mood disturbance, and anxiety (principal); F05 Delirium due to known physiological condition; I10 Essential (primary) hypertension; E03.9 Hypothyroidism, unspecified; F41.9 Anxiety disorder, unspecified; I50.9 Heart failure, unspecified; G47.00 Insomnia, unspecified; G43.909 Migraine, unspecified, not intractable, without status migrainosus; G62.9 Polyneuropathy, unspecified; M48.06 Spinal stenosis, lumbar region; R53.1 Weakness
CPT/HCPCS: 36415; 80053; 84443; 85025; 97110; 97116; 97162; 99283; G0378; G0408; G0480; G0481; G8978; G8979; G8980

== ENCOUNTER 2018-03-17 17:26 | Inpatient (IN) ==
[2018-03-17] MEDS ORDERED: NORMAL SALINE 1,000 ML IV ONE (17:57)
[2018-03-17] MEDS ORDERED: DIATRIZOATE MEGLUMINE, SODIUM 30 ML BTL PO ONE (18:03)
[2018-03-17] MEDS ORDERED: DIATRIZOATE MEGLUMINE, SODIUM 30 ML BTL ONE (18:04)
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
[2018-03-17] MEDS ORDERED: diphenhydrAMINE HCL 50 MG/ML VIAL IV ONE (18:15)
[2018-03-17] MEDS ORDERED: PROMETHAZINE HCL 25 MG/ML AMPUL IM ONE (18:15)
[2018-03-17 18:20] LABS: Hematocrit 37.2 % (37.0-47.0); Hemoglobin 12.3 gm/dL (12.5-16.0); Mean Cell Volume 92.5 fl (78-100); Mean Corpuscular Hemoglobin 30.6 pg (27-31); Mean Corpuscular Hgb Conc 33.1 g/dl (32-36); Mean Platelet Volume 8.8 fl (8-12.5); Platelet Count 318 K/mm3 (150-450); Red Blood Count 4.02 M/mm3 (4.2-5.4); Red Cell Distribution Width 12.8 % (11.5-14.0); White Blood Count 8.2 K/mm3 (4.0-10.5)
[2018-03-17 18:22] LABS: Total Cells Counted 100
[2018-03-17 18:34] LABS: Anion Gap 8.3 mmol/L (6.8-13.8); BUN/Creatinine Ratio 11.7 (9.0-21.6); Bilirubin, Total 0.6 mg/dL (0.0-1.1); Ca. Corrected For Albumin 9.5 mg/dL (8.4-10.2); Carbon Dioxide 31.2 mmol/L (24-32.6); Potassium 3.5 mmol/L (3.4-4.6); Total Protein 6.6 gm/dL (6.2-8.2)
[2018-03-17] MEDS ORDERED: PROMETHAZINE HCL 25 MG/ML AMPUL ONE (18:35)
[2018-03-17] MEDS ORDERED: diphenhydrAMINE HCL 50 MG/ML VIAL ONE (18:35)
[2018-03-17 18:39] LABS: Urine Appearance Slightly Cloudy (CLEAR); Urine Color Yellow
[2018-03-17 18:40] LABS: Urine Bilirubin Negative (NEGATIVE); Urine Blood Negative /ul (NEGATIVE); Urine Ketone 15 mg/dL (NEGATIVE); Urine Nitrite Negative (NEGATIVE); Urine Protein Negative (NEGATIVE); Urine Urobilinogen Normal (NORMAL); Urine WBC >50 /hpf (0-5); Urine pH 6.5 pH (5.0-7.0)
[2018-03-17 18:41] LABS: Urine Bacteria 1+; Urine RBC None Seen /hpf (0-5)
[2018-03-17 18:51] LABS: Eosinophil 2 % (0-3); Lymphocyte 16 % (20-51); Monocyte 11 % (0-9); Neutrophil 71 % (42-75); Neutrophil # 5.8 K/mm3 (1.3-6.0); Platelet Estimate Normal (NORMAL)
[2018-03-17 18:52] LABS: RBC Morphology Normal (NORMAL)
[2018-03-17] MEDS ORDERED: LABETALOL HCL 5 MG/ML VIAL IV ONE (18:58)
[2018-03-17] MEDS ORDERED: LEVOFLOXACIN IN DEXTROSE 5 % 750 MG/150 ML BAG IV ONE (19:12)
[2018-03-17] MEDS ORDERED: PHENAZOPYRIDINE HCL 100 MG TABLET PO ONE (22:18)
[2018-03-17] MEDS ORDERED: PHENAZOPYRIDINE HCL 100 MG TABLET ONE (22:23)
[2018-03-17] MEDS ORDERED: LEVOFLOXACIN IN DEXTROSE 5 % 500 MG/100 ML BAG IV SCH (23:15)
[2018-03-18] MEDS ORDERED: PROPRANOLOL HCL 60 MG CAPSULE.SA PO SCH (01:00)
[2018-03-18] MEDS ORDERED: LORazepam 1 MG TABLET PO ONE (01:02)
[2018-03-18] MEDS ORDERED: hydrALAZINE HCL 50 MG TABLET PO SCH (01:15)
[2018-03-18] MEDS ORDERED: KETOROLAC TROMETHAMINE 30 MG/ML VIAL IV PRN ×2 (01:27→02:15)
[2018-03-18] MEDS ORDERED: hydrALAZINE HCL 25 MG TABLET ONE (02:01)
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
[2018-03-18] MEDS: amLODIPine BESYLATE 10 MG TABLET PO SCH (11:50)
[2018-03-18] MEDS: LORazepam 0.5 MG TABLET PO SCH ×2 (12:08→16:26)
[2018-03-18] MEDS ORDERED: LORazepam 1 MG TABLET PO SCH ×2 (13:00→23:45)
[2018-03-18] MEDS: NORMAL SALINE 1,000 ML IV PRN (15:17)
[2018-03-18] MEDS: ONDANSETRON HCL/PF 2 MG/ML VIAL IV PRN ×2 (16:25→22:40)
[2018-03-18] MEDS: ACETAMINOPHEN 500 MG TABLET PO PRN ×2 (16:29→22:08)
[2018-03-18] MEDS: LEVOFLOXACIN IN DEXTROSE 5 % 500 MG/100 ML BAG IV SCH (18:58)
[2018-03-18] MEDS: PANTOPRAZOLE SODIUM 20 MG TABLET.DR PO SCH (22:09)
[2018-03-19] MEDS: ACETAMINOPHEN 500 MG TABLET PO PRN ×2 (02:48→18:00)
[2018-03-19] MEDS: NORMAL SALINE 1,000 ML IV PRN ×2 (07:01→21:04)
[2018-03-19] MEDS: PANTOPRAZOLE SODIUM 20 MG TABLET.DR PO SCH ×2 (07:03→20:36)
[2018-03-19] MEDS: LEVOTHYROXINE SODIUM 100 MCG TABLET PO SCH (07:03)
[2018-03-19] MEDS ORDERED: LORazepam 0.5 MG TABLET PO SCH (09:00)
[2018-03-19] MEDS ORDERED: LORazepam 1 MG TABLET PO SCH (09:00)
[2018-03-19] MEDS: PROPRANOLOL HCL 60 MG CAPSULE.SA PO SCH (09:53)
[2018-03-19] MEDS: CLOPIDOGREL BISULFATE 75 MG TABLET PO SCH (09:54)
[2018-03-19] MEDS: amLODIPine BESYLATE 10 MG TABLET PO SCH (09:54)
--- NOTE | 2018-03-19 11:27 | CONS ---
- Reason for consultation (3) Cholelithiases Date of Service: 03/19/18 Reason for Consultation:: nausea, weight loss, cholelithiasis HPI - General Source: patient Exam Limitations: no limitations, other - pt has hx of dementia, but seeemed to provide a clear history consistent with her past medical record - History of Present Illness Initial Comments: Ms. Allen is a very pleasant 87-year-old female, who has been admitted to the hospital. She has a one-year history of weight loss, this has worsened over the last 3-4 weeks. She denies any current abdominal pain. She states that she normally does not have abdominal pain, but when she was then Dr. Mercado' s office she was having right upper quadrant pain. She typically has nausea after eating, and this has caused her to significantly decrease the amount she is eating. She has not noticed that certain foods make her symptoms better or worse. She tries to avoid spicy foods. While she has nausea, she has not had emesis. She has trouble with constipation. She takes MiraLAX a couple times a week to help with her bowels. She has recently had diarrhea couple times. She denies seen any blood or dark stools. Her last colonoscopy was in 2016. She believes that she has had an EGD in the past, but this was many years ago. She underwent a CT scan which demonstrated biliary sludge, and a dilated gallbladder. There were no signs of cholecystitis. She does not have an elevated white count. Her CT scan also showed a thickened bowel wall which could occur with colitis. She also has a UTI, and was started on Levaquin. She has been trying to drink boost to help with her nutrition, this causes her to have diarrhea. She denies acid reflux. 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 She states that the vision in her left eye is blurry, the right eye she states she is getting macular degeneration, but she can currently see well from the right eye. When discussing her gallbladder she becomes extremely anxious. She would like to avoid surgery if possible. She states that she did not sleep last night after talking to Dr. Mercado about her gallbladder. Timing/Duration: getting worse Severity: moderate Modifying Factors - (Worsens): Reports: eating Associated Symptoms: nausea Allergies/Adverse Reactions: Allergies cephalexin monohydrate [From Keflex] Allergy (Unknown, Verified 03/17/18 17:36) chocolate flavor Allergy (Unknown, Verified 03/17/18 17:36) meperidine HCl [From Demerol] Allergy (Unknown, Verified 03/17/18 17:36) morphine Allergy (Unknown, Verified 03/17/18 17:36) Penicillins Allergy (Unknown, Verified 03/17/18 17:36) Sulfa (Sulfonamide Antibiotics) Allergy (Unknown, Verified 03/17/18 17:36) cephalexin [From Keflex] Allergy (Verified 03/17/18 17:36) Headache hydrocodone Allergy (Verified 03/17/18 17:36) iron Allergy (Verified 03/17/18 17:36) Nausea ondansetron [From Zofran (as hydrochloride)] Allergy (Verified 03/17/18 17:36) Headache prednisone Adverse Reaction (Intermediate, Verified 03/17/18 17:36) Other cefuroxime [From Ceftin] Adverse Reaction (Mild, Verified 03/17/18 17:36) Diarrhea gabapentin Adverse Reaction (Mild, Verified 03/17/18 17:36) Other Home Medications: Home Medications Medication Instructions Recorded Last Taken Clopidogrel Bisulfate [Plavix] 75 mg PO DAILY 01/13/18 Unknown LORazepam [Ativan] 1 mg PO TID 01/13/18 Unknown Levothyroxine Sodium [Levoxyl] 200 mcg PO DAILY 01/13/18 Unknown chlordiazepoxide 25 mg capsule 25 mg PO Q8H PRN #90 cap 03/14/18 Unknown hydralazine 50 mg tablet 50 mg PO BID tab 03/14/18 Unknown propranolol XL 120 mg 120 mg PO BID cap 03/14/18 03/17/18 capsule,extended release 24 hr ranitidine 300 mg capsule 300 mg PO DAILY 03/14/18 03/16/18 Omeprazole 20 mg PO BID 03/17/18 Unknown History of colonoscopy in 2016, history of knee replacement, history of eye surgery, history of hysterectomy Medications - Medications Current Medications: Current Medications Acetaminophen (Tylenol) 500 mg PO Q4H PRN PRN Reason: Mild pain (pain scale 1-3) Stop: 04/17/18 16:22 Last Admin: 03/19/18 02:48 Dose: 500 mg Amlodipine Besylate (Norvasc) 10 mg PO DAILY [facility] Stop: 04/17/18 12:01 Last Admin: 03/19/18 09:54 Dose: 10 mg Clopidogrel Bisulfate (Plavix) 75 mg PO DAILY [facility] Stop: 04/18/18 09:01 Last Admin: 03/19/18 09:54 Dose: 75 mg Sodium Chloride (Sodium Chloride 0.9%) 1,000 mls @ 70 mls/hr IV .[id number] PRN PRN Reason: HYDRATION Stop: 04/16/18 23:02 Last Admin: 03/19/18 07:01 Dose: 70 mls/hr Levofloxacin/Dextrose (Levaquin) 500 mg in 100 mls @ 100 mls/hr IV Q24H [facility]; Protocol Stop: 04/17/18 19:01 Last Infusion: 03/18/18 19:58 Dose: Infused Levothyroxine Sodium (Synthroid) 200 mcg PO DAILY@0700 [facility] Stop: 04/18/18 07:01 Last Admin: 03/19/18 07:03 Dose: 200 mcg Ondansetron HCl (Zofran) 4 mg IV Q4H PRN PRN Reason: Nausea Stop: 04/16/18 23:02 Last Admin: 03/18/18 22:40 Dose: 4 mg Pantoprazole Sodium (Protonix) 20 mg PO BID@0700,2100 [facility] Stop: 04/17/18 21:01 Last Admin: 03/19/18 07:03 Dose: 20 mg Propranolol HCl (Inderal La) 120 mg PO DAILY [facility] Stop: 04/18/18 09:01 Last Admin: 03/19/18 09:53 Dose: 120 mg Review of Systems - Review of Systems Generalized/Overall Review: Present: Weight loss EENTM: Present: Blurred Vision Respiratory: Present: No Symptoms Reported Cardiac: Present: No Symptoms Reported Abdominal: Present: Nausea, Abdominal Pain, Constipation, Diarrhea. Absent: Vomiting, Hematemesis, Melena, Bright blood from rectum Musculoskeletal: Present: Other - Swelling of the lower extremities Neurological: Present: Anxiety Skin: Present: Other - Swelling in lower extremities Endocrine: Present: No Symptoms Reported Physical Examination - Exam Vital Signs: Vital Signs - Last Taken Temp 37 C 03/19/18 07:00 Pulse 88 03/19/18 09:54 Resp 20 03/19/18 07:00 BP 164/64 H 03/19/18 09:54 Pulse Ox 92 L 03/19/18 07:00 O2 Oxygen Delivery Method Room Air Constitutional: Present: Alert, Oriented x3 ENT Exam: Absent: hard of hearing Eye Exam: bilateral eye: normal inspection Neck: Present: non-tender Breasts: Present: Exam deferred Respiratory: Present: chest non-tender Cardiovascular/Chest: Present: edema Abdomen: Present: Normal bowel sounds, soft, nontender, nondistended, no rebound tenderness /Rectal: Present: Exam deferred Extremity: Present: pedal edema, swelling Skin Exam: Present: normal color Neurologic: Present: normal mood/affect, oriented x 3 Appearance: Present: appropriate appearance Eye contact: Present: cooperative, good eye contact, normal speech Thoughts: Present: normal thought pattern - Results and Findings: Lab/Microbiology results last 24 hrs: Culture 03/17/18 18:10 Urine Culture - Final Urine,Clean Catch No Pathogens Isolated - Assessments/Findings (1) Nausea Problem: Acute (2) Weight loss Problem: Acute (3) Cholelithiases Problem: Acute (4) Diverticulitis Problem: Acute (5) Urinary tract infection Problem: Acute (6) Anxiety Problem: Acute (7) Dementia Problem: Acute (8) Hypertension Problem: Chronic Qualifiers: Hypertension type: essential hypertension Qualified Code(s): I10 - Essential (primary) hypertension Plan - Plan Plan: I would like to start with an EGD to evaluate for a gastric pathology. We could do this tomorrow morning. I discussed with case management and with Dr. Mercado, we are having trouble with the patient to be an observation status. If she is able to stay in the hospital we can obtain an ultrasound and EGD tomorrow. I would like to rule out a gastric etiology that could be treated with medication. Ultrasound will also help us to see the anatomy of the gallbladder better. There are no signs of acute cholecystitis on her CT scan, her symptoms have been ongoing for quite some period of time. The patient does have dementia and may not be the most reliable story and of her right upper quadrant pain. Her friend was present in the room, she does not recall the patient having worsening symptoms with certain foods. Her friend states the symptoms have been much worse over the last 3-4 weeks. The patient has significant anxiety, she feels that she is too old to have gallbladder surgery. She would like to explore any possible medical treatments first. I discussed the plan with Dr. Mercado as well. He agrees with proceeding with the EGD and ultrasound. Thank you Dr. Mercado for allowing me to participate in the care of your patient, please call with any questions.
[2018-03-19] MEDS ORDERED: LORazepam 1 MG TABLET PO ONE (13:00)
[2018-03-19] MEDS: LEVOFLOXACIN IN DEXTROSE 5 % 500 MG/100 ML BAG IV SCH (18:39)
--- NOTE | 2018-03-19 21:08 | PN ---
Subjective - Date and Time Seen Date: 03/19/18 Time: 07:15 Subjective Narrative: Caterina continues to be nauseous this morning. She has headache. She has back pain. She did have a good night's sleep on 2 mg of lorazepam and is a bit however this morning. I'll reduce the dose and hold the next dose until 1:[address] Araujo will see her this morning. She will evaluate her for possible cholecystectomy for possible other causes for her abdominal discomfort and nausea Objective - Review of Systems Generalized/Overall Review: Reports: Weakness, Fatigue, Weight loss EENTM: Reports: No Symptoms Reported Respiratory: Reports: No Symptoms Reported Cardiac: Reports: No Symptoms Reported Abdominal: Reports: Nausea, Vomiting. Denies: Abdominal Pain Genitourinary Symptoms: Reports: Urgency, Frequency, Incontinent Musculoskeletal Complaints: Reports: Back Pain Neurological: Reports: Emotional Problems, Weakness Skin: Reports: No Symptoms Reported Endocrine: Reports: No Symptoms Reported - Vitals Vitals: Last Vital Signs Temp 36.6 C 03/19/18 19:00 Pulse 81 03/19/18 19:00 Resp 18 03/19/18 19:00 BP 167/61 H 03/19/18 19:00 Pulse Ox 95 03/19/18 19:00 - EKG/Xray Findings XRAY: abdomen Interpretation: Discreji w/ radiologist - I reviewed the CT scan and discussed it with Dr. Araujo last night. The gallbladder is distended and full of sludge and stones. - Exam Constitutional: Present: Alert, Oriented x3, Cooperative, Well developed, Moderate distress, Elderly, Obese ENT Exam: Present: normal ENT inspection, pharynx normal, hard of hearing Neck: Present: non-tender Respiratory: Present: chest non-tender, lungs clear, normal breath sounds, no respiratory distress, no accessory muscle use Cardiovascular/Chest: Present: normal peripheral pulses, regular rate, rhythm, no chest tenderness, edema Abdomen: Present: Normal bowel sounds, soft, obese, tender, positive Osman sign Extremity: Present: lower extremity edema Skin Exam: Present: normal color, warm/dry, no cyanosis Lymphatic: Present: no adenopathy Neurologic: Present: 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 Absent: normal mood/affect Appearance: Present: appropriate appearance Eye contact: Present: cooperative, good eye contact, normal speech Thoughts: Present: normal thought pattern, no apparent hallucination Assessment/Plan - Problems/Diagnosis (1) Nausea and vomiting Problem: Chronic Qualifiers: Vomiting type: unspecified (2) Muscle weakness Problem: Chronic (3) Urinary tract infection Problem: Acute Qualifiers: Urinary tract infection type: acute cystitis (4) Hyponatremia Problem: Acute
--- NOTE | 2018-03-19 21:27 | PN ---
Asad Note - Interim Date: 03/19/18 Time: 21:00 Narrative: 03/19/18 21:09 Caterina has had an eventful day. She was angry this morning and so I allowed her a regular tray for latch. She ate a few bites of it but then became nauseous and and felt full and cannot eat anymore. She has eaten some crackers this evening. On evening rounds she is nauseous and dry heaving and to a emesis container. She continues to be weak as well. I realize she is an observation patient but should be in acute care patient in my view. She is scheduled for upper endoscopy tomorrow morning at [address] Araujo. She also needs an abdominal ultrasound but apparently there is a scheduling issue there. I was going to discharge her tonight but with her in this condition and then to be back here at 7:00 in the morning, it is logistically almost impossible for them to do. Therefore, I made the decision that I will not dismiss her tonight.
[2018-03-19] MEDS: ONDANSETRON HCL/PF 2 MG/ML VIAL IV PRN (23:03)
[2018-03-20] MEDS: ACETAMINOPHEN 500 MG TABLET PO PRN ×2 (00:32→10:41)
[2018-03-20] MEDS ORDERED: RINGER'S SOLUTION,LACTATED 1,000 ML IV PRN (06:00)
[2018-03-20] MEDS: PANTOPRAZOLE SODIUM 20 MG TABLET.DR PO SCH (08:05)
[2018-03-20] MEDS: LEVOTHYROXINE SODIUM 100 MCG TABLET PO SCH (08:05)
--- NOTE | 2018-03-20 08:53 | ANES ---
Anesthesia Pre Procedure Eval Vitals/Labs: Last Vital Signs Temp 36.7 C 03/20/18 08:02 Pulse 78 03/20/18 08:02 Resp 18 03/20/18 08:02 BP 138/55 03/20/18 08:02 Pulse Ox 93 03/20/18 08:02 HOME MEDICATIONS Clopidogrel Bisulfate [Plavix] 75 mg PO DAILY 01/13/18 [Last Taken Unknown] LORazepam [Ativan] 1 mg PO TID 01/13/18 [Last Taken Unknown] Levothyroxine Sodium [Levoxyl] 200 mcg PO DAILY 01/13/18 [Last Taken Unknown] chlordiazepoxide 25 mg capsule 25 mg PO Q8H PRN #90 cap 03/14/18 [Last Taken Unknown] hydralazine 50 mg tablet 50 mg PO BID tab 03/14/18 [Last Taken Unknown] propranolol XL 120 mg capsule,extended release 24 hr 120 mg PO BID cap [Last Taken 03/17/18] ranitidine 300 mg capsule 300 mg PO DAILY 03/14/18 [Last Taken 03/16/18] Omeprazole 20 mg PO BID 03/17/18 [Last Taken Unknown] Allergies/Adverse Reactions: Allergies Allergy/AdvReac Type Severity Reaction Status Date / Time cephalexin monohydrate Allergy Unknown Verified 03/17/18 17:36 [From Keflex] chocolate flavor Allergy Unknown Verified 03/17/18 17:36 meperidine HCl [From Demerol] Allergy Unknown Verified 03/17/18 17:36 morphine Allergy Unknown Verified 03/17/18 17:36 Penicillins Allergy Unknown Verified 03/17/18 17:36 Sulfa (Sulfonamide Allergy Unknown Verified 03/17/18 17:36 Antibiotics) cephalexin [From Keflex] Allergy Headache Verified 03/17/18 17:36 hydrocodone Allergy Verified 03/17/18 17:36 iron Allergy Nausea Verified 03/17/18 17:36 ondansetron Allergy Headache Verified 03/17/18 17:36 [From Zofran (as hydrochloride)] prednisone AdvReac Intermediate Other Verified 03/17/18 17:36 cefuroxime [From Ceftin] AdvReac Mild Diarrhea Verified 03/17/18 17:36 gabapentin AdvReac Mild Other Verified 03/17/18 17:36 - Planned Procedure Planned Procedure: UTI.DIVERTICULITIS Medical History (Last Reviewed 03/20/18 @ 07:36 by Dante Cardoza CRNA) Congestive heart disease Onset Date: ~03/30/14 Hyponatremia Onset Date: ~01/08/16 Malignant melanoma of skin of eyelid, including canthus Onset Date: ~1999 Paresthesias Onset Date: ~02/24/12 Pulmonary embolism Onset Date: ~1997 Vitamin B 12 deficiency Onset Date: ~02/09/17 Vitamin D deficiency Onset Date: ~09/22/09 Alzheimer disease Onset Date: ~05/20/17 Anemia, vitamin B12 deficiency Arthritis Chronic GERD Chronic pain syndrome Depression Hyperlipidemia due to dietary fat intake Lumbar back sprain Surgical History (Last Reviewed 03/20/18 @ 07:36 by Dante Cardoza CRNA) History of knee replacement Onset Date: ~07/18/06 Hx of colonoscopy Onset Date: ~09/22/15 Hx of eye surgery Onset Date: ~1998 Hx of hysterectomy Onset Date: ~1967 Family History (Last Reviewed 03/14/18 @ 14:50 by Sarah Vivas) Father No problems noted. Mother No problems noted. - Airway/Neck/Teeth Within Normal Limits:: Yes Teeth Condition: Missing Teeth Mallampatti Score: 3 Thyromental (T-M) distance: > 6 cm Mandibulo Hyoid distance: > 3 cm - Respiratory Respiratory: lungs clear - Cardiovascular Patient History - Cardiac/Respiratory: CHF, Hypertension Tolerates Activity: Poor Heart Sounds: S1 & S2, Regular - Anesthesia Assessment and Plan ASA Class: PS, III Anesthesia Type Plan: MAC
--- NOTE | 2018-03-20 08:53 | ANES ---
Post Anesthesia Assessment - Vital Signs Vitals: Last Vital Signs Temp 36.7 C 03/20/18 08:02 Pulse 78 03/20/18 08:02 Resp 18 03/20/18 08:02 BP 138/55 03/20/18 08:02 Pulse Ox 93 03/20/18 08:02 Airway Patency: Normal - Mental Status Level Of Consciousness: Awake - Pain Level Pain Score: 0 - N/V Assessment Nausea/Vomiting Presence: None Dehydration:: No
--- NOTE | 2018-03-20 08:54 | OR ---
Operative Report - Dictated Report Narrative: Date of Service: 03/20/18 Procedure: EGD with biopsy and polypectomy Pre-procedure diagnosis: nausea, weight loss Post-procedure diagnosis: duodenal polyp, multiple gastric body polyps Surgeon: Dr. Vane Hall Anesthesia: MAC Indication for procedure: Ms. Allen has had early satiety and nausea for the past year. This has worsened in the last few weeks. She has had significant weight loss. Description of procedure: After appropriate informed consent was obtained the patient was taken to the endoscopy suite, placed in the left lateral decubitus position. Adequate sedation was achieved, and a well-lubricated gastroscope was inserted and advanced into the second portion of the duodenum. A small duodenal polyp was present and was removed with snare polypectomy devide. The scope was then withdrawn to the antrum. A biopsy was taken in the antrum to evaluate for H. pylori. The scope was retroflexed, there was no evidence of a hiatal hernia, there were numberous benign appearing gastric polyps present. Two of these polyps were removed with the hot snare and sent to pathology The gastric body appeared normal. The scope was neutralized and the excess air was suctioned. The scope was slowly withdrawn to the GE junction, Z line was normal. The esophagus was tortuous, but no other abnormalities were seen. Complications: none Specimens to pathology: Antral, duodenal polyp, gastric polyp x2 Disposition: The patient had no immediate complications. We will call the patient with the results of the biopsies. I would like her to discharge on protonix instead of her home omeprazole. I also ordered an US. I would like to see her in 7-10 days in the office. Thank you Dr. Mercado for allowing me to participate in the care of your patient.
--- NOTE | 2018-03-20 08:54 | ANES ---
Post Anesthesia Discharge - Transfer of Care Transfer of Care handoff given to nurse: Yes - Discharge from PACU Discharge from PACU when meets criteria: Yes - Discharge to ASU Discharge to ASU-no complications/pt stable: Yes
[2018-03-20] MEDS ORDERED: ENOXAPARIN SODIUM 40 MG/0.4 ML SYRG SC SCH (10:00)
[2018-03-20] MEDS: PROPRANOLOL HCL 60 MG CAPSULE.SA PO SCH (10:44)
[2018-03-20] MEDS: CLOPIDOGREL BISULFATE 75 MG TABLET PO SCH (10:45)
[2018-03-20] MEDS: amLODIPine BESYLATE 10 MG TABLET PO SCH (10:46)
--- NOTE | 2018-03-20 13:42 | DS ---
(1) Nausea and vomiting Problem: Chronic Qualifiers: Vomiting type: unspecified (2) Muscle weakness Problem: Chronic (3) Urinary tract infection Problem: Acute Qualifiers: Urinary tract infection type: acute cystitis (4) Hyponatremia Problem: Acute Description of Stay: Caterina Allen is an 87-year-old female who is admitted through ER to observation stay on 03/16/2018. She is discharged to home today pending further care. She was admitted for nausea and weakness and feeling extremely anxious. She hasn't been able to eat well for several months and has been losing weight. She is still obese but poorly nourished. During the course of her stay she was found to have cholelithiasis with sludge but ultrasound does not show cholecystitis. Dr. Araujo was gracious enough to consult and took her for upper endoscopy this morning. No findings were present that would explain her symptoms. Caterina has been reluctant to consider cholecystectomy because her of a massive heart attack during hip surgery and she is concerned that might happen to her. I spoke with Dr. Eaton in this morning and she agrees to do the cholecystectomy if Caterina is in agreement. Unfortunately Caterina has been on Plavix and will have to be off of that for 5 or 6 days before his effectiveness is resolved. Therefore she'll be discharged to home. She is to see Dr. Araujo in the office next week and then if the surgery is to be done will be scheduled from that visit. She was started on ensure clear to try to get her protein improved but she developed diarrhea from that just as she has from boost and ensure in the past. Procedures Performed: see notes below List Procedures: EGD, abdominal ultrasound, and CT with contrast while in ER. Results and Findings: Lab Pending Results 03/17/18 03/17/18 03/17/18 18:15 18:15 18:15 WBC 8.2 RBC 4.02 L Hgb 12.3 L Hct 37.2 MCV 92.5 MCH 30.6 MCHC 33.1 RDW 12.8 Plt Count 318 MPV 8.8 Neutrophils % (Manual) 71 Lymphocytes % (Manual) 16 L Monocytes % (Manual) 11 H Eosinophils % (Manual) 2 Neutrophils # (Manual) 5.8 Lymphocytes # (Manual) 1.3 L Monocytes # (Manual) 0.9 Eosinophils # (Manual) 0.2 Platelet Estimate Normal RBC Morphology Normal Sodium 130 L Plasma Sodium 130 Potassium 3.5 Chloride 94 L Carbon Dioxide 31.2 Anion Gap 8.3 BUN 7 Creatinine 0.60 Est GFR (Non-Af Amer) 101 BUN/Creatinine Ratio 11.7 Random Glucose 98 Calcium 9.0 Calcium Adj for Albumin 9.5 Total Bilirubin 0.6 AST 15 ALT 13 L Alkaline Phosphatase 77 Total Protein 6.6 Albumin 3.0 L Lipase 70 L Urine Color Yellow Urine Appearance Slightly cloudy Urine pH 6.5 Ur Specific [place] 1.010 Urine Protein Negative Urine Glucose (UA) Negative Urine Ketones 15 Urine Blood Negative Urine Nitrate Negative Urine Bilirubin Negative Urine Urobilinogen Normal Ur Leukocyte Esterase 100 H Urine RBC None seen Urine WBC >50 H Ur Epithelial Cells 5-10 H Urine Bacteria 1+ H Urine Culture Comments Culture to follow Pathology Specimen 03/20/18 08:58 WBC RBC Hgb Hct MCV MCH MCHC RDW Plt Count MPV Neutrophils % (Manual) Lymphocytes % (Manual) Monocytes % (Manual) Eosinophils % (Manual) Neutrophils # (Manual) Lymphocytes # (Manual) Monocytes # (Manual) Eosinophils # (Manual) Platelet Estimate RBC Morphology Sodium Plasma Sodium Potassium Chloride Carbon Dioxide Anion Gap BUN Creatinine Est GFR (Non-Af Amer) BUN/Creatinine Ratio Random Glucose Calcium Calcium Adj for Albumin Total Bilirubin AST ALT Alkaline Phosphatase Total Protein Albumin Lipase Urine Color Urine Appearance Urine pH Ur Specific [place] Urine Protein Urine Glucose (UA) Urine Ketones Urine Blood Urine Nitrate Urine Bilirubin Urine Urobilinogen Ur Leukocyte Esterase Urine RBC Urine WBC Ur Epithelial Cells Urine Bacteria Urine Culture Comments Pathology Specimen Spec to path Discharge Location: Home Disposition: [facility] Agency: Other - [facility] Condition: Fair Face to Face Encounter completed per CMS Guidelines: Yes Discharge Activity: Activity as tolerated Discharge Diet: [facility] soft Referrals: Rogelio Fajardo MD [Primary Care Provider] - Additional Patient Instructions (free text): Dr Hall's office will call the patient with the results of the biopsies. I would like her to discharge on protonix instead of her home omeprazole. F/U with Dr Hall in 7-10 days in the office. -Please make TCM appointment unless mcc discharge. Thank you! Mony @ [phone]. [facility]. Please call report and fax orders and face to face upon discharge. . . Prescriptions (Any new or edited meds): LORazepam [Ativan] 1 mg PO TID #90 tablet Pantoprazole Sodium [Protonix] 20 mg PO BID@0700,2100 #60 tablet. Propranolol HCl [Inderal LA] 60 mg PO BID #60 capsule. Complete Home Medications List: Complete Home Medication List: Levothyroxine Sodium [Levoxyl] 200 mcg PO DAILY 01/13/18 hydralazine 50 mg tablet 50 mg PO BID tab 03/14/18 Acetaminophen [Tylenol] 500 mg PO Q4H PRN tablet 03/20/18 LORazepam [Ativan] 1 mg PO TID #90 tablet 03/20/18 Pantoprazole Sodium [Protonix] 20 mg PO BID@0700,2100 #60 tablet. 03/20/18 Propranolol HCl [Inderal LA] 60 mg PO BID #60 capsule. 03/20/18 amLODIPine BESYLATE [Norvasc] 10 mg PO DAILY tablet 03/20/18
[2018-03-20 14:43] VITALS: BP 147/67
[2018-03-21] MEDS ORDERED: RINGER'S SOLUTION,LACTATED 1,000 ML IV PRN (06:00)
== END 2018-03-20 14:45 | disposition home health service (06) | DRG 690 ==
LOC: MS 17:26 → ER 17:26 → MS 22:43
PROVIDERS: ADMIT Family Medicine; ATTEND Family Medicine
CPT/HCPCS: 36415; 74019; 74020; 74177; 76705; 80053; 81001; 83690; 85007; 85025; 87086; 88305; 88312; 88313; 96361; 96365; 96375; 97110; 97161; 99285; G8978; G8979; G8980; J2405

== ENCOUNTER 2018-07-23 13:05 | Inpatient (IN) ==
[2018-07-23] MEDS ORDERED: NORMAL SALINE 1,000 ML IV ONE (13:18)
[2018-07-23 13:43] LABS: Hematocrit 38.6 % (37.0-47.0); Hemoglobin 12.3 gm/dL (12.5-16.0); Mean Corpuscular Hemoglobin 31.2 pg (27-31); Mean Corpuscular Hgb Conc 31.9 g/dl (32-36); Mean Platelet Volume 8.9 fl (8-12.5); Platelet Count 320 K/mm3 (150-450); Red Blood Count 3.94 M/mm3 (4.2-5.4); Red Cell Distribution Width 12.2 % (11.5-14.0); White Blood Count 18.1 K/mm3 (4.0-10.5)
[2018-07-23 13:48] LABS: Total Cells Counted 100
[2018-07-23 13:59] LABS: Troponin I Less than 0.017 ng/mL (0.00-0.10)
[2018-07-23 14:00] LABS: Albumin * 2.6 gm/dl (3.4-5.0); Anion Gap 6.5 mmol/L (6.8-13.8); Blood Urea Nitrogen 18 mg/dL (3-23); Calcium * 8.8 mg/dL (7.9-10.9); Carbon Dioxide 35.5 mmol/L (24-32.6); Chloride 90 mmol/L (97-106); Glucose * 91 mg/dL (70-110); Sodium 127 mmol/L (132-142)
[2018-07-23 14:01] LABS: ALT 13 U/L (19-67); AST 19 U/L (0-48); Alkaline Phosphatase * 73 U/L (50-170); BNP * 7088 pg/mL (5-550); Bilirubin, Total 0.4 mg/dL (0.0-1.1); Ca. Corrected For Albumin 9.6 mg/dL (8.4-10.2)
[2018-07-23 14:03] LABS: Venous Blood Gas HCO3 29.5 mmol/L (22.0-29.0); Venous Blood Gas pH 7.44 (7.32-7.43)
[2018-07-23 14:17] LABS: Eosinophil 3 % (0-3); Immature Granulocyte 2 (0-1); Lymphocyte 19 % (20-51); Monocyte 12 % (0-9); Neutrophil 64 % (42-75); Neutrophil # 11.6 K/mm3 (1.3-6.0)
[2018-07-23 14:24] LABS: Urine Bilirubin Negative (NEGATIVE); Urine Blood Negative /ul (NEGATIVE); Urine Ketone 5 mg/dL (NEGATIVE); Urine Protein Negative (NEGATIVE); Urine Specific Gravity >=1.030 SP.GR. (1.005-1.010); Urine Urobilinogen Normal (NORMAL); Urine pH 5.5 pH (5.0-7.0)
[2018-07-23 14:37] LABS: Urine Appearance Clear (CLEAR); Urine Bacteria 1+; Urine Color Yellow; Urine Nitrite Positive (NEGATIVE); Urine RBC TRACE /hpf (0-5); Urine WBC 0-5 /hpf (0-5)
[2018-07-23 14:38] LABS: Urine Hyaline Cast TRACE /LPF
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
[2018-07-23] MEDS: LEVOFLOXACIN IN DEXTROSE 5 % 500 MG/100 ML BAG IV SCH (15:10)
[2018-07-23] MEDS ORDERED: diphenhydrAMINE HCL 25 MG CAPSULE PO PRN (17:14)
[2018-07-23] MEDS ORDERED: ACETAMINOPHEN 500 MG TABLET PO PRN (17:14)
[2018-07-23] MEDS ORDERED: FUROSEMIDE 10 MG/ML VIAL IV ONE (17:24)
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
[2018-07-23] MEDS: FAMOTIDINE 20 MG TABLET PO SCH (20:19)
[2018-07-23] MEDS: POTASSIUM CHLORIDE 10 MEQ TABLET.SA PO SCH (20:19)
[2018-07-23] MEDS: hydrALAZINE HCL 25 MG TABLET PO SCH (20:20)
[2018-07-24] MEDS: LORazepam 1 MG TABLET PO SCH ×3 (08:48→17:07)
[2018-07-24] MEDS: PROPRANOLOL HCL 60 MG CAPSULE.SA PO SCH (08:48)
[2018-07-24] MEDS: SERTRALINE HCL 50 MG TABLET PO SCH (09:55)
[2018-07-24] MEDS: POTASSIUM CHLORIDE 10 MEQ TABLET.SA PO SCH ×2 (09:55→17:07)
[2018-07-24] MEDS: hydrALAZINE HCL 25 MG TABLET PO SCH ×2 (09:55→21:54)
[2018-07-24] MEDS: CYANOCOBALAMIN 1,000 MCG TABLET PO SCH (09:55)
[2018-07-24] MEDS: FAMOTIDINE 20 MG TABLET PO SCH ×2 (09:55→21:53)
[2018-07-24] MEDS: LEVOTHYROXINE SODIUM 175 MCG TABLET PO SCH (09:55)
[2018-07-24 10:12] LABS: Albumin * 2.3 gm/dl (3.4-5.0); Anion Gap 7.5 mmol/L (6.8-13.8); BUN/Creatinine Ratio 19.7 (9.0-21.6); Bilirubin, Total 0.5 mg/dL (0.0-1.1); Ca. Corrected For Albumin 9.1 mg/dL (8.4-10.2); Calcium * 8.1 mg/dL (7.9-10.9); Carbon Dioxide 37.3 mmol/L (24-32.6); Potassium 3.8 mmol/L (3.4-4.6); Total Protein 5.3 gm/dL (6.2-8.2)
--- NOTE | 2018-07-24 11:16 | DS ---
(1) Hyponatremia Problem: Resolved (2) Chronic diastolic CHF (congestive heart failure) Problem: Chronic (3) UTI (urinary tract infection) Problem: Ruled-out Description of Stay: Caterina is an 88 yo female with weakness, fatigue, and altered mental status. She had a sodium of 127 and urine that was suspicious for UTI. She was given IV levaquin in the ER. She was admitted to acute inpatient status due to hyponatremia with history of chronic diastolic CHF. Correction of sodium can be more difficult balancing sodium and fluids in this patient type. She was given IV normal saline to replace sodium as free water was diuresed with IV lasix. Sodium was rechecked and returned to normal quicker than expected. Urine culture returned with no growth and antibiotics were discontinued. Caterina appears to be at her baseline and is ok for home discharge. Procedures Performed: none Results and Findings: Pending Mircobiology Results 07/23/18 14:14 Urine,Catheterized Urine Culture - Preliminary No Growth Lab Pending Results 07/23/18 13:00: Lactic Acid, Venous 1.1 07/23/18 13:00: pCO2 44.8, pO2 55.7 H, HCO3 29.5 H, Total CO2 30.9 H, Base Excess 4.7 H, ABG pH 7.44 H, VBG O2 Saturation 89.8 L 07/23/18 13:38: WBC 18.1 H, RBC 3.94 L, Hgb 12.3 L, Hct 38.6, MCV 98.0, MCH 31.2 H, MCHC 31.9 L, RDW 12.2, Plt Count 320, MPV 8.9, Neutrophils % (Manual) 64, Lymphocytes % (Manual) 19 L, Monocytes % (Manual) 12 H, Eosinophils % (Manual) 3, Immature Granulocytes 2 H, Neutrophils # (Manual) 11.6 H, Lymphocytes # (Manual) 3.4, Monocytes # (Manual) 2.2 H, Eosinophils # (Manual) 0.5 07/23/18 13:38: Sodium 127 L, Plasma Sodium 127 L, Potassium 5.0 H D, Chloride 90 L, Carbon Dioxide 35.5 H, Anion Gap 6.5 L, BUN 18 D, Creatinine 0.75, Est GFR (Non-Af Amer) 78, BUN/Creatinine Ratio 24.0 H, Random Glucose 91, Calcium 8.8, Calcium Adj for Albumin 9.6, Magnesium 2.0, Total Bilirubin 0.4, AST 19, ALT 13 L, Alkaline Phosphatase 73, Troponin I Less than 0.017, B-Natriuretic Peptide 7088 H, Total Protein 6.0 L, Albumin 2.6 L 07/23/18 14:14: Urine Color Yellow, Urine Appearance Clear, Urine pH 5.5, Ur Specific [place] >=1.030, Urine Protein Negative, Urine Glucose (UA) Negative, Urine Ketones 5, Urine Blood Negative, Urine Nitrate Positive H, Urine Bilirubin Negative, Urine Urobilinogen Normal, Ur Leukocyte Esterase Negative, Urine RBC Trace, Urine WBC 0-5, Ur Epithelial Cells None seen, Urine Bacteria 1+ H, Hyaline Casts Trace, Urine Culture Comments Culture to follow 07/24/18 09:45: Sodium 133, Plasma Sodium 132, Potassium 3.8 D, Chloride 92 L, Carbon Dioxide 37.3 H, Anion Gap 7.5, BUN 15, Creatinine 0.76, Est GFR (Non-Af Amer) 77, BUN/Creatinine Ratio 19.7, Random Glucose 62 L D, Calcium 8.1, Calcium Adj for Albumin 9.1, Total Bilirubin 0.5, AST 19, ALT 13 L, Alkaline Phosphatase 64, Total Protein 5.3 L, Albumin 2.3 L Discharge Location: Home Disposition: [facility] Service [facility] Agency: [facility] Condition: Fair Discharge Activity: Activity as tolerated Discharge Diet: General/regular food Referrals: Aubrey Mercado DO [Primary Care Provider] - One Week Problem Oriented Discharge Instructions to Patient/Family: Hyponatremia Additional Patient Instructions (free text): -Please make TCM appointment unless fci discharge. Thank you! Mony @ [phone]. Resume nursing services with [facility]. Please call report to [phone]. Please fax orders upon discharge to [phone]. Complete Home Medications List: Complete Home Medication List: sertraline 50 mg tablet 50 mg PO DAILY #30 tab 03/23/18 Cyanocobalamin (Vitamin B-12) [Vitamin B12] 1,000 mcg PO DAILY 04/12/18 Levothyroxine Sodium [Synthroid] 175 mcg PO DAILY@0700 #90 tab 04/13/18 Acetaminophen [Tylenol] 1,000 mg PO Q6H PRN tab 04/15/18 cholecalciferol (vitamin D3) 50,000 unit capsule 50,000 unit PO QWEEK #0.1 cap 05/17/18 hydralazine 50 mg tablet 25 mg PO BID tab 06/07/18 potassium chloride ER 10 mEq capsule,extended release 10 meq PO BID #60 cap 06/07/18 propranolol ER 60 mg capsule,24 hr,extended release 60 mg PO DAILY #60 cap 06/07/18 lorazepam 1 mg tablet 1 mg PO TID #90 tab 06/21/18 ethacrynic acid 25 mg tablet 25 mg PO DAILY #30 tab 06/26/18 diphenhydramine 25 mg tablet 25 mg PO HS PRN #100 tab 07/05/18 Ranitidine HCl [Zantac] 150 mg PO QAM 07/23/18 Ranitidine HCl [Zantac] 300 mg PO HS 07/23/18
[2018-07-24 12:29] LABS: Hemoglobin 11.3 gm/dL (12.5-16.0); Mean Cell Volume 98.9 fl (78-100); Mean Corpuscular Hgb Conc 31.4 g/dl (32-36); Mean Platelet Volume 9.5 fl (8-12.5); Platelet Count 275 K/mm3 (150-450); Red Blood Count 3.64 M/mm3 (4.2-5.4); Red Cell Distribution Width 12.1 % (11.5-14.0); White Blood Count 16.2 K/mm3 (4.0-10.5)
[2018-07-24 12:52] LABS: Total Cells Counted 100
[2018-07-24 13:16] LABS: Atypical (Reactive) Lymph 8 % (0-2); Lymphocyte 9 % (20-51); Monocyte 11 % (0-9); Neutrophil 72 % (42-75); Neutrophil # 11.7 K/mm3 (1.3-6.0)
[2018-07-24 13:19] LABS: Hypochromia Trace; Microcytosis Trace; Ovalocytes 1+; Platelet Estimate Normal (NORMAL); Schistocytes Trace
[2018-07-24 14:52] LABS: Urine Bilirubin 1 mg/dl (NEGATIVE); Urine Blood 25 /ul (NEGATIVE); Urine Ketone 15 mg/dL (NEGATIVE); Urine Nitrite Negative (NEGATIVE); Urine Protein Negative (NEGATIVE); Urine Specific Gravity 1.025 SP.GR. (1.005-1.010); Urine Urobilinogen Normal (NORMAL); Urine pH 5.5 pH (5.0-7.0)
[2018-07-24 15:01] LABS: Urine Appearance Clear (CLEAR); Urine Color Yellow
[2018-07-24 15:02] LABS: Urine Bacteria TRACE; Urine WBC 0-5 /hpf (0-5)
[2018-07-24] MEDS: LEVOFLOXACIN IN DEXTROSE 5 % 500 MG/100 ML BAG IV SCH ×2 (15:11→15:35)
[2018-07-25] MEDS: LORazepam 1 MG TABLET PO SCH ×3 (08:12→17:28)
[2018-07-25] MEDS: hydrALAZINE HCL 25 MG TABLET PO SCH (08:15)
[2018-07-25] MEDS: PROPRANOLOL HCL 60 MG CAPSULE.SA PO SCH (08:16)
[2018-07-25] MEDS: SERTRALINE HCL 50 MG TABLET PO SCH (08:16)
[2018-07-25] MEDS: LEVOTHYROXINE SODIUM 175 MCG TABLET PO SCH (08:40)
[2018-07-25] MEDS: FAMOTIDINE 20 MG TABLET PO SCH (08:40)
[2018-07-25] MEDS: CYANOCOBALAMIN 1,000 MCG TABLET PO SCH (08:40)
[2018-07-25] MEDS: POTASSIUM CHLORIDE 10 MEQ TABLET.SA PO SCH ×2 (08:41→17:28)
[2018-07-25 10:01] LABS: Hematocrit 37.1 % (37.0-47.0); Hemoglobin 11.2 gm/dL (12.5-16.0); Mean Cell Volume 101.6 fl (78-100); Mean Corpuscular Hemoglobin 30.7 pg (27-31); Mean Corpuscular Hgb Conc 30.2 g/dl (32-36); Mean Platelet Volume 8.6 fl (8-12.5); Platelet Count 266 K/mm3 (150-450); Red Blood Count 3.65 M/mm3 (4.2-5.4); Red Cell Distribution Width 12.1 % (11.5-14.0); White Blood Count 16.2 K/mm3 (4.0-10.5)
[2018-07-25 10:13] LABS: Total Cells Counted 100
[2018-07-25 10:19] LABS: Albumin * 2.2 gm/dl (3.4-5.0); Anion Gap 6.6 mmol/L (6.8-13.8); BUN/Creatinine Ratio 24.3 (9.0-21.6); Bilirubin, Total 0.5 mg/dL (0.0-1.1); Ca. Corrected For Albumin 9.4 mg/dL (8.4-10.2); Calcium * 8.3 mg/dL (7.9-10.9); Carbon Dioxide 38.6 mmol/L (24-32.6); Potassium 4.2 mmol/L (3.4-4.6); Total Protein 5.3 gm/dL (6.2-8.2)
[2018-07-25] MEDS ORDERED: NORMAL SALINE 500 ML IV PRN (10:36)
[2018-07-25 11:24] LABS: Lymphocyte 12 % (20-51); Monocyte 8 % (0-9); Neutrophil 80 % (42-75)
[2018-07-25 11:27] LABS: Anisocytosis Trace; Hypochromia Trace; Ovalocytes Trace; Platelet Estimate Normal (NORMAL); Poikilocytosis Trace
[2018-07-25] MEDS: LEVOFLOXACIN IN DEXTROSE 5 % 500 MG/100 ML BAG IV SCH (14:23)
[2018-07-25] MEDS ORDERED: [UNRECOGNIZED DRUG - OTHER] IV PRN (20:07)
[2018-07-26] MEDS: hydrALAZINE HCL 25 MG TABLET PO SCH ×3 (00:47→21:31)
[2018-07-26] MEDS: FAMOTIDINE 20 MG TABLET PO SCH ×3 (00:48→21:32)
[2018-07-26] MEDS: LEVOTHYROXINE SODIUM 175 MCG TABLET PO SCH (07:15)
[2018-07-26] MEDS: POTASSIUM CHLORIDE 10 MEQ TABLET.SA PO SCH ×2 (09:01→16:12)
[2018-07-26] MEDS: PROPRANOLOL HCL 60 MG CAPSULE.SA PO SCH (09:01)
[2018-07-26] MEDS: CYANOCOBALAMIN 1,000 MCG TABLET PO SCH (09:02)
--- NOTE | 2018-07-26 09:03 | PN ---
Subjective - Date and Time Seen Date: 07/25/18 Time: 12:30 Subjective Narrative: Alert. Declines medications and food. Makes good eye contact. Objective - Vitals Vitals: Last Vital Signs Temp 36.2 C 07/26/18 06:13 Pulse 91 07/26/18 06:13 Resp 18 07/26/18 06:13 BP 115/60 07/26/18 06:13 Pulse Ox 100 07/26/18 06:13 - Abnormal Lab Findings Abnormal Lab Findings: Abnormal Lab Results 07/25/18 07/25/18 Range/Units 09:50 09:50 WBC 16.2 H (4.0-10.5) K/mm3 RBC 3.65 L (4.2-5.4) M/mm3 Hgb 11.2 L (12.5-16.0) gm/dL MCV 101.6 H (78-100) fl MCHC 30.2 L (32-36) g/dl Neutrophils % (Manual) 80 H (42-75) % Lymphocytes % (Manual) 12 L (20-51) % Neutrophils # (Manual) 13.0 H (1.3-6.0) K/mm3 Monocytes # (Manual) 1.3 H (0.0-1.0) k/mm3 Chloride 93 L (97-106) mmol/L Carbon Dioxide 38.6 H (24-32.6) mmol/L Anion Gap 6.6 L (6.8-13.8) mmol/L BUN/Creatinine Ratio 24.3 H (9.0-21.6) Random Glucose 59 L (70-110) mg/dL ALT 18 L (19-67) U/L Total Protein 5.3 L (6.2-8.2) gm/dL Albumin 2.2 L (3.4-5.0) gm/dl - Exam Constitutional: Present: Alert Respiratory: Present: lungs clear, normal breath sounds Cardiovascular/Chest: Present: regular rate, rhythm, no murmur Abdomen: Present: Normal bowel sounds, soft, nontender, nondistended Skin Exam: Present: normal color, warm/dry, no cyanosis Assessment/Plan Plan Narrative: 1) Urinary Tract Infection - Culture positive, pending sensitivities. Continue antibiotics. 2) Altered Mental Status - Unchanged, may be due to UTI 3) Hyponatremia - Resolved, continue to monitor. - Problems/Diagnosis (1) UTI (urinary tract infection) Problem: Acute Qualifiers: Urinary tract infection type: acute cystitis Hematuria presence: without hematuria Qualified Code(s): N30.00 - Acute cystitis without hematuria (2) Hyponatremia Problem: Resolved (3) Chronic diastolic CHF (congestive heart failure) Problem: Chronic
[2018-07-26] MEDS: LORazepam 1 MG TABLET PO SCH ×3 (09:04→16:11)
[2018-07-26] MEDS: SERTRALINE HCL 50 MG TABLET PO SCH (09:20)
[2018-07-26 09:43] LABS: Hemoglobin 11.6 gm/dL (12.5-16.0); Mean Cell Volume 103.7 fl (78-100); Mean Corpuscular Hemoglobin 30.9 pg (27-31); Mean Corpuscular Hgb Conc 29.7 g/dl (32-36); Platelet Count 279 K/mm3 (150-450); Red Blood Count 3.76 M/mm3 (4.2-5.4); Red Cell Distribution Width 12.1 % (11.5-14.0); White Blood Count 20.5 K/mm3 (4.0-10.5)
[2018-07-26 09:44] LABS: Total Cells Counted 100
[2018-07-26 09:57] LABS: Albumin * 2.3 gm/dl (3.4-5.0); Anion Gap 8.7 mmol/L (6.8-13.8); Bilirubin, Total 0.5 mg/dL (0.0-1.1); Ca. Corrected For Albumin 10.1 mg/dL (8.4-10.2); Calcium * 9.1 mg/dL (7.9-10.9); Carbon Dioxide 35.6 mmol/L (24-32.6); Potassium 4.3 mmol/L (3.4-4.6); Total Protein 5.7 gm/dL (6.2-8.2)
[2018-07-26 10:00] LABS: Atypical (Reactive) Lymph 3 % (0-2); Lymphocyte 9 % (20-51); Monocyte 8 % (0-9); Neutrophil 80 % (42-75); Neutrophil # 16.4 K/mm3 (1.3-6.0)
[2018-07-26 10:02] LABS: Hypochromia Trace; Schistocytes 1+
[2018-07-26 10:03] LABS: Macrocytosis 1+
[2018-07-26] MEDS: DEXTROSE 5%-0.5 NORMAL SALINE 1,000 ML IV PRN ×2 (10:49→21:29)
[2018-07-26] MEDS: CLINDAMYCIN PHOSPHATE 600 MG in DEXTROSE 5 % IN WATER 100 ML IV SCH ×4 (11:00→17:29)
--- NOTE | 2018-07-26 14:50 | PN ---
Subjective - Date and Time Seen Date: 07/26/18 Time: 10:30 Subjective Narrative: Alert. Does not speak. Makes good eye contact. Objective - Vitals Vitals: Last Vital Signs Temp 36.1 C 07/26/18 10:42 Pulse 84 07/26/18 10:42 Resp 18 07/26/18 10:42 BP 133/38 07/26/18 10:42 Pulse Ox 96 07/26/18 10:42 - Abnormal Lab Findings Abnormal Lab Findings: Abnormal Lab Results 07/26/18 07/26/18 Range/Units 09:37 09:37 WBC 20.5 H D (4.0-10.5) K/mm3 RBC 3.76 L (4.2-5.4) M/mm3 Hgb 11.6 L (12.5-16.0) gm/dL MCV 103.7 H (78-100) fl MCHC 29.7 L (32-36) g/dl Neutrophils % (Manual) 80 H (42-75) % Lymphocytes % (Manual) 9 L (20-51) % Neutrophils # (Manual) 16.4 H (1.3-6.0) K/mm3 Monocytes # (Manual) 1.6 H (0.0-1.0) k/mm3 Atypic/Reactive Lymphs 3 H (0-2) % Chloride 94 L (97-106) mmol/L Carbon Dioxide 35.6 H (24-32.6) mmol/L BUN/Creatinine Ratio 28.0 H (9.0-21.6) Random Glucose 64 L (70-110) mg/dL Total Protein 5.7 L (6.2-8.2) gm/dL Albumin 2.3 L (3.4-5.0) gm/dl - Exam Constitutional: Present: Alert Respiratory: Present: lungs clear, normal breath sounds Cardiovascular/Chest: Present: regular rate, rhythm, no murmur Abdomen: Present: Normal bowel sounds, soft, nontender Skin Exam: Present: normal color, warm/dry, no cyanosis Assessment/Plan Plan Narrative: 1) Urinary Tract Infection - Culture positive, pending sensitivities. Currently on Clindamycin as WBC was not improving and clinical condition was not improving on levaquin. 2) Altered Mental Status - Unchanged, may be due to UTI 3) Hyponatremia - Resolved, continue to monitor. - Problems/Diagnosis (1) Hyponatremia Problem: Resolved (2) Chronic diastolic CHF (congestive heart failure) Problem: Chronic (3) UTI (urinary tract infection) Problem: Ruled-out Qualifiers: Urinary tract infection type: acute cystitis Hematuria presence: without hematuria Qualified Code(s): N30.00 - Acute cystitis without hematuria
[2018-07-27] MEDS: CLINDAMYCIN PHOSPHATE 600 MG in DEXTROSE 5 % IN WATER 100 ML IV SCH ×4 (02:16→10:26)
[2018-07-27] MEDS: LEVOTHYROXINE SODIUM 175 MCG TABLET PO SCH (06:39)
[2018-07-27] MEDS: DEXTROSE 5%-0.5 NORMAL SALINE 1,000 ML IV PRN ×2 (09:01→19:38)
[2018-07-27] MEDS: SERTRALINE HCL 50 MG TABLET PO SCH (09:18)
[2018-07-27] MEDS: PROPRANOLOL HCL 60 MG CAPSULE.SA PO SCH (09:18)
[2018-07-27] MEDS: LORazepam 1 MG TABLET PO SCH ×3 (09:18→17:10)
[2018-07-27] MEDS: hydrALAZINE HCL 25 MG TABLET PO SCH ×2 (09:18→20:32)
[2018-07-27] MEDS: FAMOTIDINE 20 MG TABLET PO SCH ×2 (09:18→20:31)
[2018-07-27] MEDS: POTASSIUM CHLORIDE 10 MEQ TABLET.SA PO SCH ×2 (09:18→17:10)
[2018-07-27] MEDS: CYANOCOBALAMIN 1,000 MCG TABLET PO SCH (09:18)
[2018-07-27] MEDS ORDERED: DILTIAZEM HCL 5 MG/ML VIAL IV ONE ×2 (09:48→23:14)
[2018-07-27 10:20] LABS: Hematocrit 36.2 % (37.0-47.0); Hemoglobin 10.8 gm/dL (12.5-16.0); Mean Corpuscular Hgb Conc 29.8 g/dl (32-36); Platelet Count 241 K/mm3 (150-450); Red Blood Count 3.48 M/mm3 (4.2-5.4); Red Cell Distribution Width 12.2 % (11.5-14.0); White Blood Count 18.9 K/mm3 (4.0-10.5)
[2018-07-27 10:22] LABS: Total Cells Counted 100
[2018-07-27 10:35] LABS: Anion Gap 1.9 mmol/L (6.8-13.8); BUN/Creatinine Ratio 22.9 (9.0-21.6); Bilirubin, Total 0.3 mg/dL (0.0-1.1); Ca. Corrected For Albumin 9.9 mg/dL (8.4-10.2); Calcium * 8.6 mg/dL (7.9-10.9); Carbon Dioxide 39.9 mmol/L (24-32.6); Potassium 3.8 mmol/L (3.4-4.6); Total Protein 5.2 gm/dL (6.2-8.2)
[2018-07-27 10:47] LABS: Lymphocyte 16 % (20-51); Monocyte 8 % (0-9); Neutrophil 76 % (42-75); Neutrophil # 14.4 K/mm3 (1.3-6.0); Platelet Estimate Normal (NORMAL); RBC Morphology Normal (NORMAL)
[2018-07-27] MEDS: AMPICILLIN SODIUM/SULBACTAM NA 3 GM in NORMAL SALINE 100 ML IV SCH ×2 (13:52→19:34)
[2018-07-27] MEDS: NYSTATIN 15 APPL BTL TP SCH ×2 (13:52→20:30)
--- NOTE | 2018-07-27 23:32 | PN ---
Subjective - Date and Time Seen Date: 07/27/18 Time: 09:45 Subjective Narrative: Caterina is alert but does not talk. She will shake head to answer occasionally. No distress. She takes occasional bites of food. Objective - Vitals Vitals: Last Vital Signs Temp 36.6 C 07/27/18 22:46 Pulse 92 07/27/18 22:46 Resp 18 07/27/18 22:46 BP 118/52 07/27/18 22:46 Pulse Ox 97 07/27/18 22:46 - Abnormal Lab Findings Abnormal Lab Findings: Abnormal Lab Results 07/27/18 07/27/18 Range/Units 09:58 09:58 WBC 18.9 H (4.0-10.5) K/mm3 RBC 3.48 L (4.2-5.4) M/mm3 Hgb 10.8 L (12.5-16.0) gm/dL Hct 36.2 L (37.0-47.0) % MCV 104.0 H (78-100) fl MCHC 29.8 L (32-36) g/dl Neutrophils % (Manual) 76 H (42-75) % Lymphocytes % (Manual) 16 L (20-51) % Neutrophils # (Manual) 14.4 H (1.3-6.0) K/mm3 Monocytes # (Manual) 1.5 H (0.0-1.0) k/mm3 Chloride 94 L (97-106) mmol/L Carbon Dioxide 39.9 H (24-32.6) mmol/L Anion Gap 1.9 L (6.8-13.8) mmol/L Est GFR (Non-Af Amer) 59 L (60-130) mL/min BUN/Creatinine Ratio 22.9 H (9.0-21.6) Random Glucose 133 H D (70-110) mg/dL Total Protein 5.2 L (6.2-8.2) gm/dL Albumin 2.0 L (3.4-5.0) gm/dl - Exam Constitutional: Present: Alert Respiratory: Present: lungs clear, normal breath sounds Cardiovascular/Chest: Present: no murmur, irregularly irregular Abdomen: Present: Normal bowel sounds, soft, nontender, nondistended Skin Exam: Present: normal color, warm/dry, no cyanosis Assessment/Plan Plan Narrative: 1) Urinary Tract Infection - Staphylococcus Simulans based on urine culture. Based on Culture she is on Unasyn. Reported PCN allergy but discussed with daughter and this reaction was only a rash. So the benefits of this antibiotic outweigh the risk of it causing a rash. 2) Altered Mental Status - Unchanged. Secondary to UTI vs progression of dementia. 3) Malnutrition - D5 0.5NS prn hydration. Eats small bites but not getting significant calories. Will need to consider tube feeding vs hospice if not improving. 4) Hyponatremia - Resolved, continue to monitor. 5) Brief episode of atrial fibrillation with RVR. Resolved spontaneously. - Problems/Diagnosis (1) Hyponatremia Problem: Resolved (2) Chronic diastolic CHF (congestive heart failure) Problem: Chronic (3) UTI (urinary tract infection) Problem: Ruled-out Qualifiers: Urinary tract infection type: acute cystitis Hematuria presence: without hematuria Qualified Code(s): N30.00 - Acute cystitis without hematuria (4) Atrial fibrillation with RVR Problem: Acute
[2018-07-28] MEDS: AMPICILLIN SODIUM/SULBACTAM NA 3 GM in NORMAL SALINE 100 ML IV SCH ×4 (01:55→19:25)
[2018-07-28] MEDS: NYSTATIN 15 APPL BTL TP SCH (10:05)
[2018-07-28] MEDS: SERTRALINE HCL 50 MG TABLET PO SCH (10:05)
[2018-07-28] MEDS: FAMOTIDINE 20 MG TABLET PO SCH (10:05)
[2018-07-28] MEDS: CYANOCOBALAMIN 1,000 MCG TABLET PO SCH (10:06)
[2018-07-28] MEDS: PROPRANOLOL HCL 60 MG CAPSULE.SA PO SCH (10:06)
[2018-07-28] MEDS: LEVOTHYROXINE SODIUM 175 MCG TABLET PO SCH (10:06)
[2018-07-28] MEDS: hydrALAZINE HCL 25 MG TABLET PO SCH (10:06)
[2018-07-28] MEDS: LORazepam 1 MG TABLET PO SCH ×3 (10:06→16:45)
[2018-07-28] MEDS: POTASSIUM CHLORIDE 10 MEQ TABLET.SA PO SCH ×2 (10:06→16:45)
[2018-07-28 10:39] LABS: Hematocrit 40.1 % (37.0-47.0); Hemoglobin 11.7 gm/dL (12.5-16.0); Mean Cell Volume 104.4 fl (78-100); Mean Corpuscular Hemoglobin 30.5 pg (27-31); Mean Corpuscular Hgb Conc 29.2 g/dl (32-36); Mean Platelet Volume 9.2 fl (8-12.5); Neutrophil # 14.9 K/mm3 (1.3-6.0); Neutrophil % 73.6 % (42-75.0); Platelet Count 238 K/mm3 (150-450); Red Blood Count 3.84 M/mm3 (4.2-5.4); Red Cell Distribution Width 12.1 % (11.5-14.0); White Blood Count 20.2 K/mm3 (4.0-10.5)
[2018-07-28 10:47] LABS: Total Cells Counted 100
[2018-07-28 10:57] LABS: Albumin * 2.1 gm/dl (3.4-5.0); Anion Gap 5.4 mmol/L (6.8-13.8); BUN/Creatinine Ratio 22.8 (9.0-21.6); Bilirubin, Total 0.4 mg/dL (0.0-1.1); Ca. Corrected For Albumin 10.3 mg/dL (8.4-10.2); Calcium * 9.1 mg/dL (7.9-10.9); Carbon Dioxide 36.2 mmol/L (24-32.6); Potassium 3.6 mmol/L (3.4-4.6); Total Protein 5.5 gm/dL (6.2-8.2)
[2018-07-28 11:34] LABS: Lymphocyte 10 % (20-51); Monocyte 7 % (0-9); Neutrophil 83 % (42-75); Neutrophil # 16.8 K/mm3 (1.3-6.0)
[2018-07-28 11:35] LABS: Platelet Estimate Normal (NORMAL); RBC Morphology Normal (NORMAL)
[2018-07-28 11:37] LABS: Macrocytosis 1+
--- NOTE | 2018-07-28 19:48 | PN ---
Subjective - Date and Time Seen Date: 07/28/18 Time: 09:45 Subjective Narrative: Caterina is alert. She does not speak but shakes her head to answer at times. She reports she is hungry but refuses to eat other than a little applesauce at times. She has no concerns and is in no distress. Objective - Vitals Vitals: Last Vital Signs Temp 36.4 C 07/28/18 18:20 Pulse 84 07/28/18 18:20 Resp 16 07/28/18 18:20 BP 127/43 07/28/18 18:20 Pulse Ox 99 07/28/18 18:20 - Abnormal Lab Findings Abnormal Lab Findings: Abnormal Lab Results 07/28/18 07/28/18 Range/Units 10:05 10:05 WBC 20.2 H (4.0-10.5) K/mm3 RBC 3.84 L (4.2-5.4) M/mm3 Hgb 11.7 L (12.5-16.0) gm/dL MCV 104.4 H (78-100) fl MCHC 29.2 L (32-36) g/dl Immature Gran % (Auto) 1.50 H (0.001-0.429) % Immature Gran # (Auto) 0.31 H (0.000-0.0310) K/mm3 Neutrophils % (Manual) 83 H (42-75) % Lymphocytes % 12.4 L (20-51) % Lymphocytes % (Manual) 10 L (20-51) % Monocytes % 12.1 H (0.0-9) % Neutrophils # 14.9 H (1.3-6.0) K/mm3 Neutrophils # (Manual) 16.8 H (1.3-6.0) K/mm3 Monocytes # 2.4 H (0.0-1.0) k/mm3 Monocytes # (Manual) 1.4 H (0.0-1.0) k/mm3 Chloride 95 L (97-106) mmol/L Carbon Dioxide 36.2 H (24-32.6) mmol/L Anion Gap 5.4 L (6.8-13.8) mmol/L BUN/Creatinine Ratio 22.8 H (9.0-21.6) Calcium Adj for Albumin 10.3 H (8.4-10.2) mg/dL Total Protein 5.5 L (6.2-8.2) gm/dL Albumin 2.1 L (3.4-5.0) gm/dl - Exam Constitutional: Present: Alert, No distress Respiratory: Present: lungs clear, normal breath sounds Cardiovascular/Chest: Present: regular rate, rhythm, no murmur Abdomen: Present: Normal bowel sounds, soft, nontender Skin Exam: Present: normal color, warm/dry, no cyanosis Appearance: Present: other - Caterina is alert and makes good eye contact. When asked questions she will occassionally move her head or mouth words, but she does not make sound. Assessment/Plan Plan Narrative: Caterina is an 88 yo female with: 1) Urinary Tract Infection - Staphylococcus Simulans based on urine culture. This is likely an opportunistic pathogen, but I believe it is possibly causing her acute delirium. Based on Culture she is on Unasyn. Reported PCN allergy but discussed with daughter and this reaction was only a rash. So the benefits of this antibiotic outweigh the risk of it causing a rash. This is day 2 of antibiotic. She has a second urine culture that remains no growth to date. It is possible that the first culture is a contaminant and that her altered mental status is not due to UTI but a progression of dementia and will not improve. 2) Altered Mental Status - I am unclear on her baseline. I suspect she has wanda ntia but family reports this is different than her normal. It is possibly acute delirium secondary to Urinary Tract Infection. She is under no distress and remains very calm without any concern. It is also possible that this is a progression of dementia and may not improve. 3) Malnutrition - Caterina has not been eating goal calories. She has been getting fluid off and on to keep hydrated based on labs. Not giving fluid continuously to prevent fluid overload due to history of chronic diastolic CHF. She is eating some, but minimal. If her condition does not improve family will need to consider other options of feeding or if this is her new baseline consider hospice and comfort cares. 4) Hyponatremia - Resolved, continue to monitor. - Problems/Diagnosis (1) UTI (urinary tract infection) Problem: Ruled-out Qualifiers: Urinary tract infection type: acute cystitis Hematuria presence: without hematuria Qualified Code(s): N30.00 - Acute cystitis without hematuria (2) Hyponatremia Problem: Resolved (3) Chronic diastolic CHF (congestive heart failure) Problem: Chronic
[2018-07-28 22:56] VITALS: BP 00/00
--- NOTE | 2018-07-29 12:26 | DS ---
Discharge Summary - Provider Admitting Clinician: Salo Bacon - Date and Time Date of : 07/28/18 - Diagnosis/Cause of (1) UTI (urinary tract infection) Problems: Acute (2) Hyponatremia Problems: Resolved (3) Chronic diastolic CHF (congestive heart failure) Problems: Chronic (4) Alzheimer disease Problems: Chronic (5) Delirium Problems: Acute - Summary Details (narrative): Caterina was admitted with acute delirium and an altered mental state that was reportedly different than her baseline. Initially her sodium was low and urine was suspicious for UTI. She was given IV fluids and sodium was corrected. Initially the urine culture came back showing no growth and with the sodium returning to normal it was planned for her to be discharged. However her mental state was not back at her baseline and she would not eat. It was unknown if this was an acute progression of her alzheimer's dementia or another acute process. Throughout her hospital course she was calm and in no distress. When asked if she had any needs she would often not respond and would often refuse to participate with eating, drinking, or any other activities. A head CT was performed and showed evidence of an old stroke, but no acute changes. After discussing with the patient's daughter it was decided to keep her in the hospital for further evaluation as she was not able to eat and stay hydrated at home in her current condition. The following day the urine culture began showing growth. She was continued on antibiotics and these were adjusted based on culture results that showed staph simulans that was resistant to levaquin. Based on patient condition it was suspected that this was an opportunistic bacteria, and not contaminant. Based on allergies listed she was initially going to be treated with Daptomycin, this was ordered but our supply was low. I discussed allergies with the patient's daughter who reported her penicillin allergy was only a rash. With the daughter/POA's permission over the phone it was decided to treat with ampicillin based on culture sensitivities. No rash developed. Caterina's condition did not improve. She remained pleasantly confused and refused to eat and drink. She was given IV fluids when needed to keep hydrated. She ate bites of food but did not get enough calories to meet her goals. Discussed with POJhonathan that I was unsure if her current condition was all related to UTI vs an a cute progression of dementia. As Caterina was not improving and meeting goals for fluid and oral intake we would need to consider tube feeds vs comfort cares and consideration for hospice. It was hoped that her clinical condition would improve and she would be able to eat more on her own but it was undecided if family wanted tube feeds. On routine nursing rounds on the evening of 07/28/18 she was found to have . There had been no acute changes in her condition. Procedures Performed: none
== END 2018-07-28 22:30 | disposition expired | DRG 641 ==
LOC: ER 13:05 → MS 13:05 → OBSVTOIN 15:05 → MS 15:23
PROVIDERS: ADMIT Family Medicine; ATTEND Family Medicine
CPT/HCPCS: 36415; 36416; 70450; 71010; 71045; 80053; 81001; 82803; 83519; 83605; 83735; 83880; 84484; 85007; 85025; 87040; 87086; 93005; 96361; 96374; 99285